=== PATIENT | male | born 1960 | race Caucasian/White ===

== ENCOUNTER 2017-09-03 11:38 | Emergency (ER) | payer BC, SELFPAY ==
[2017-09-03 13:30] VITALS: BP 127/77; PULSE 63; RESP 20; TEMP 37.2; O2SAT 97; BMI 33.7
[2017-09-03 13:39] LABS: UTC Influenza A Antigen Negative (Negative); UTC Influenza B Antigen Negative (Negative)
--- NOTE | 2017-09-03 14:32 | HMH.EDUTC ---
[facility] – [place] Disposition Clinical Impression: Viral upper respiratory illness Disposition: Home, Self-Care Condition on Discharge: Good Instructions: DI for Viral Upper Respiratory Infection -- Adult Additional Instructions: * No sign of bacterial infection. Likely viral. Virus can take 7-14 days to run their course. Could still potentially be the flu with a false negative rapid test. Keep the differences between the flu and other upper resp infections in mind over the next few days. We could always repeat a flu test if you worsen or tomorrow if you would like to return. * Monitor Temp. Tylenol every 4 hours as needed no more then 5 times a day or 4000mg in 24 hours and/or ibuprofen every 6 hours as needed no more then 3200mg in 24 hours (as long as your primary care doctor has told you that it is ok to take both) for fever/aches/pain. ER if fever no less than 101 despite tylenol and ibuprofen * Encourage fluids, water, gatorade, powerade, pedialyte if /toddler/child * warm salt water gargles * warm fluids * sore throat lozenges * sleep elevated * humidifier/vaporizer * Use your albuterol as needed if you hear yourself wheezing. We discussed steroids but you would rather wait and see how the next 48 hours go before taking steroids. Referrals: Dominik Aguayo MD [Primary Care Provider] - (IMMEDIATELY for new or worsening symptoms OR no noticeable improvement over the next 48-72 hours OR if you get better then are suddenly worse again. 911 for difficulty breathing or swallowing.) Time of Disposition: 15:14 Medical Decision Making Vital Signs: 09/03/17 13:30 Temperature 98.9 F Temperature Source Temporal Artery Scan Pulse Rate [Right Brachial] 63 Respiratory Rate 20 Blood Pressure [Right Arm] 127/77 Blood Pressure Mean [Right Arm] 93 Blood Pressure Source [Right Arm] Automatic Cuff Blood Pressure Position [Right Arm] Sitting 02 Sat by Pulse Oximetry 97 Oxygen Delivery Method Room Air - Lab Data Lab results reviewed: Yes: I reviewed the patient's lab results. Lab Results 09/03/17 13:24: Influenza Type A Ag Negative, Influenza Type B Ag Negative - Radiology Data #1 Image(s): Chest Image Reviewed: Yes I reviewed the patient's radiology image, Yes I have reviewed radiologist's interpretation, Yes I reviewed the patient's radiology image w/the ED provider Preliminary Findings: Normal/NAD Rvwd w/ Dr. Hall before final. No acute finding. Granuloma right lung - Jeffery Inquiry Pt receiving controlled substance: No [facility] [place] HPI - General Stated complaint: possible flu Time Seen by Provider: 09/03/17 14:32 Mode of Arrival: Family Vehicle Source of Information: Patient Limitations: No Limitations Description of Symptoms (Recalled from Triage Doc. by RN): FLU LIKE SYMPTOMS SINCE LAST NIGHT. HEENT Symptoms (Recalled from RN notes): Yes (FLU SYMPTOMS) Resp Symptoms (Recalled from RN notes): Yes (FLU SYMPTOMS) Skin Symptoms (Recalled from RN notes): No MS Symptoms (Recalled from RN notes): No Functional Status (Recalled from RN notes): NA - History of Present Illness Provider Complaint: c/o I think I have the flu . Bodyaches, chills, cough, feeling feverish. Started late yesterday, persisted into today. No fever now. Mucinex seems to help. Cough chronic. Hx of COPD. Hasn't felt the need to use albuterol more. Seemed worse days ago but had gotten better until this started last night. a little wheezing . No SOA. 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 - Related Data Home Medications Medication Instructions Recorded Confirmed Bisoprol/Hydrochlorothiazide 1 tab PO DAILY 09/03/17 09/03/17 [Bisoprolol-Hctz 10-6.25 mg Tab] Lisinopril [Lisinopril 10mg Tab] 10 mg PO DAILY 09/03/17 09/03/17 Omeprazole [Omeprazole 40mg 40 mg PO DAILY 09/03/17 09/03/17 Capsule] Allergies Allergy/AdvReac Type Severity Reaction Status Date / Time No Known Allergies Allergy
--- NOTE | 2017-09-03 14:38 | ED_ITS ---
[facility] [place] Clinical Impression: Viral upper respiratory illness Disposition: Home, Self-Care Condition on Discharge: Good Instructions: DI for Viral Upper Respiratory Infection -- Adult Additional Instructions: * No sign of bacterial infection. Likely viral. Virus can take 7-14 days to run their course. Could still potentially be the flu with a false negative rapid test. Keep the differences between the flu and other upper resp infections in mind over the next few days. We could always repeat a flu test if you worsen or tomorrow if you would like to return. * Monitor Temp. Tylenol every 4 hours as needed no more then 5 times a day or 4000mg in 24 hours and/or ibuprofen every 6 hours as needed no more then 3200mg in 24 hours (as long as your primary care doctor has told you that it is ok to take both) for fever/aches/pain. ER if fever no less than 101 despite tylenol and ibuprofen * Encourage fluids, water, gatorade, powerade, pedialyte if infant/toddler/ child * warm salt water gargles * warm fluids * sore throat lozenges * sleep elevated * humidifier/vaporizer * Use your albuterol as needed if you hear yourself wheezing. We discussed steroids but you would rather wait and see how the next 48 hours go before taking steroids. Referrals: Dominik Aguayo MD [Primary Care Provider] - (IMMEDIATELY for new or worsening symptoms OR no noticeable improvement over the next 48-72 hours OR if you get better then are suddenly worse again. 911 for difficulty breathing or swallowing.) Time of Disposition: 15:14 Medical Decision Making Vital Signs: 09/03/17 13:30 Temperature 98.9 F Temperature Source Temporal Artery Scan Pulse Rate [Right Brachial] 63 Respiratory Rate 20 Blood Pressure [Right Arm] 127/77 Blood Pressure Mean [Right Arm] 93 Blood Pressure Source [Right Arm] Automatic Cuff Blood Pressure Position [Right Arm] Sitting 02 Sat by Pulse Oximetry 97 Oxygen Delivery Method Room Air - Lab Data Lab results reviewed: Yes: I reviewed the patient's lab results. Lab Results 09/03/17 13:24: Influenza Type A Ag Negative, Influenza Type B Ag Negative - Radiology Data #1 Image(s): Chest Image Reviewed: Yes I reviewed the patient's radiology image, Yes I have reviewed radiologist's interpretation, Yes I reviewed the patient's radiology image w/the ED provider Preliminary Findings: Normal/NAD Rvwd w/ Dr. Hall before final. No acute finding. Granuloma right lung - Jeffery Inquiry Pt receiving controlled substance: No [facility] [place] - General Stated complaint: possible flu Time Seen by Provider: 09/03/17 14:32 Mode of Arrival: Family Vehicle Source of Information: Patient Limitations: No Limitations Description of Symptoms (Recalled from Triage Doc. by RN): FLU LIKE SYMPTOMS SINCE LAST NIGHT. HEENT Symptoms (Recalled from RN notes): Yes (FLU SYMPTOMS) Resp Symptoms (Recalled from RN notes): Yes (FLU SYMPTOMS) Skin Symptoms (Recalled from RN notes): No MS Symptoms (Recalled from RN notes): No Functional Status (Recalled from RN notes): NA - History of Present Illness Provider Complaint: c/o I think I have the flu . Bodyaches, chills, cough, feeling feverish. Started late yesterday, persisted into today. No fever now. Mucinex seems to help. Cough chronic. Hx of COPD. Hasn't felt the need to use albuterol more. Seemed worse days ago but had gotten better until this started last night. a little wheezing . No SOA. 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
--- NOTE | 2017-09-03 14:41 | XR_ITS ---
XR chest 2V HISTORY: ITS.REASON: COUGH ORDERING PHYSICIAN: Cesilia Hagan PATIENT AGE: 57 years COMPARISON: None available FINDINGS: The cardiomediastinal silhouette and pulmonary vascularity are within normal limits. The lungs are clear without infiltrates, suspicious nodules, or pleural effusions. Calcified granuloma right lower lobe No acute bony abnormalities. IMPRESSION: No acute finding
== END 2017-09-03 15:15 | disposition home or self-care (01) ==
PROVIDERS: Emergency Provider Nurse Practitioner Family; Family Provider Internal Medicine Adolescent Medicine; PCP Internal Medicine Adolescent Medicine
DX: J06.9 Acute upper respiratory infection, unspecified (principal); I10 Essential (primary) hypertension; F17.210 Nicotine dependence, cigarettes, uncomplicated; Z79.899 Other long term (current) drug therapy
CPT/HCPCS: 71046; 87804; 99202

== ENCOUNTER → 2018-01-01 08:34 | Outpatient (CLI) | payer BC, SELFPAY ==
--- NOTE | 2018-01-01 08:37 | MR_ITS ---
MR cervical spine wo con, MR 3-d myelogram/MRCP Ordering Physician: Dominik Aguayo MD Patient Age: 57 years: Male HISTORY: ITS.REASON: CERVICAL NEURALGIA Neck pain with right-sided neck and right shoulder pain and tingling radiates to right shoulder symptoms for years. TECHNIQUE: Sagittal STIR, T1, T2, ; axial T1 and gradient echo on 1.5T Siemens wide bore MRI. 3-D MR myelogram image set obtained & performed on MRI workstation. Additional sagittal thin section T2 weighted dataset obtained from this latter acquisition as well (---76 CPT) . COMPARISON :May 2012 MRI C-spine FINDINGS . Cranial cervical junction appears satisfactory. C2/3 disc and cord satisfactory. Only scant posterior disc prominence to the right at C2/3. Negligible C3/4. Most prominent findings are at this level to the right. Large broad-based hypertrophic spur/ large hard disc right paracentral... Again seen to yield marked effacement and flattening cervical cord to the right. Similar appearance was seen in 2012.. Findings appear fairly stable at this level only question some incremental progression. This large osteophyte does narrow the spinal canal and yields a fairly pronounced spinal stenosis at this level: as well as prominent right recess & foraminal encroachment. C4/5. Large spur left /mainly hard disc left paracentral. Effaces cervical cord on left & yields prominent encroachment upon the left recess & left foramen. Small associated soft disc protrusion extends beyond spur, but the prominent spurring primarily accounts for the leftward defect Overall Similar appearance to 2014. Effacement & Flattening cervical cord to the left is stable. Only question very very slightly pronounced.... Moderate pronounced Central canal stenosis C5-C6. Again the spur/hard disc at midline & to the left., This effaces &, flattens the cervical cord midline & to the left.. Appears to be slight additional effacement of the cervical cord at midline and to the left to on today's study versus prior 2012 MR today's study at this level... Fairly pronounced central canal Spinal stenosis On the sensitive STIR images on also note suggestion subtle increased signal at the cervical cord -to the right at C3/4 and to the left at C 4/5 C5/6.. Could reflect subtle myelopathy changes. C6/7. mild/moderate Broad-based soft disc protrusion mild effaces thecal sac & but does not abut the cervical cord.. Fairly stable mild protrusion overall. Only question very slightly more evident midline and to the left. Yields borderline canal stenosis C7/T1, T1/T2, T2/T3 disc intact.. The 3-D MR myelogram nicely demonstrates multilevel spinal stenosis most pronounced at C 3/4 & C4/5; with moderate spinal stenosis at C5/6. Indentation on thecal sac midline at the left at C5-C6 C5/6 and mild stenosis C6/7, -----IMPRESSION . 1. Multilevel cervical spondylosis & multilevel cervical spinal stenosis again evident. Findings similar to 2012,-but with suggestion of subtle progression features at C5-C6 . neurosurgical follow be warranted for their input particular if any progression of symptoms 2. Summary of main findings below: C3/4: Large spur and hard disc to right- yields prominent effacement cervical cord to the right.. Fairly Prominent Central canal stenosis most pronounced at this level. Prominent right recess & foraminal encroachment. Overall findings similar 2012 with only perhaps early kyphosis at this level now evident. C4/5 hard disc & generous spur left paracentral, effaces cervical cord to left. Trace soft disc component associated. Overall appearance Similar to 2012. Moderate pronounced spinal stenosis C5/6. Minimal progression of spurring & hard disc at midline & to left. Slight additional effacement of cerv
== END ==
PROVIDERS: Family Provider Internal Medicine Adolescent Medicine; PCP Internal Medicine Adolescent Medicine; Visit Provider Internal Medicine Adolescent Medicine
DX: M54.12 Radiculopathy, cervical region (principal)
CPT/HCPCS: 72141; 76376

== ENCOUNTER → 2018-02-25 13:37 | Outpatient (POV) | payer BC, SELFPAY | PROVIDERS: Family Provider Internal Medicine Adolescent Medicine; PCP Internal Medicine Adolescent Medicine; Visit Provider Neurological Surgery | DX: Z00.00 Encounter for general adult medical examination without abnormal findings (principal) ==

== ENCOUNTER 2018-12-10 08:30 | Outpatient (RCR) | payer BC, SELFPAY ==
--- NOTE | 2018-11-30 09:30 | HMH.PTOPEV ---
PT Outpatient Evaluation Rehab PT Outpatient Evaluation Start: 11/30/18 09:20 Freq: Status: Active Protocol: Document 11/30/18 09:20 OCTAVIO (Rec: 11/30/18 09:30 OCTAVIO [id number]) Electronically Signed By Manjeet Ceron, PT 11/30/18 09:20 Outpatient Therapy Subjective History Subjective History Pt reports insidious onset R Sh blade area/mid back pain beginning ~4 weeks ago. Pt reports pain progressed with some R sided neck pain and R UE radicular s/s in lateral elbow area. PMH: cervical fusion sx. 03/2018. Pt reports all cervical s/s were resolved following sx., until now. Chief Complaint Pain,Stiff,Paresthesia, Weakness Symptom Type Ache,Throb,Sharp,Dull,Numbness ,Tingling Symptoms Relieved By Rest/Positioning Symptoms Aggravated By Sitting,Standing,Physical Activity,Lifting Prior Functional Limitations Lifting,Housework,Standing, Sitting Current Functional Limitations Lifting,Housework,Standing, Sitting Symptom Description Constant but Variable Level of pain today (0-10) 4 Pain scale - at its best (0-10) 3 Pain scale - at its worst (0-10) 8 Cervical Eval Palpation Cervical Muscles R Cervical Paraspinal,R CT Junction,R Upper Trapezius,R Thoracic Paraspinals Cervical/Thoracic Palpation Findings Tenderness,Trigger Point, Muscle Guarding Posture Head/C-Spine Posture Sitting Position Flexed Head/C-Spine Posture Standing Position Flexed Flexibility Deficits Upper Trapezius Muscle Length (R) Moderate Tightness Scalene Group Muscle Length (R) Moderate Tightness Pectoralis Major Muscle Length (R) Mild Tightness Passive Joint Mobility Cervical PIVM Dec: R OA L OA R AA L AA R C2/3 L C2/3 R C3/4 L C3/4 R C4/5 L C4/5 R C5/6 L C5/6 R C6/7 L C6/7 R C7/T1
== END 2018-12-10 08:35 | disposition home or self-care (01) ==
LOC: PT 08:30
PROVIDERS: Visit Provider Internal Medicine Adolescent Medicine
DX: M54.12 Radiculopathy, cervical region (principal); M25.511 Pain in right shoulder
CPT/HCPCS: 97010; 97012; 97014; 97035; 97110; 97140; 97163; G0283

== ENCOUNTER → 2019-04-29 10:31 | Outpatient (CLI) | payer SELFPAY ==
--- NOTE | 2019-04-29 10:34 | CT_ITS ---
PROCEDURE: CT HEART W CALCIUM SCORE CLINICAL HISTORY: SCREENING COMPARISON: No exams were available for comparison TECHNIQUE: Axial images obtained with sagittal and coronal reformats. All CT scans at the facility use one or more dose reduction, viz: automated exposure control, ma/kV adjustment per patient size (including targeted exams where dose is matched to indication, i.e. head), or iterative reconstruction technique. FINDINGS: The coronary artery calcium score is 160 which correlates to a moderate plaque burden and high cardiovascular disease risk. Incidental note is made of some minimal aortic valve calcification. Mild atelectatic or fibrotic changes are present in the right lung base within the middle lobe. There is a calcified granuloma in the right lower lobe. IMPRESSION: Moderate plaque burden with high cardiovascular disease risk Dictated by: Timmy Pitt MD 04/30/2019 09:12 Electronically signed by Timmy Pitt MD in [place] 04/30/2019 09:12
== END ==
PROVIDERS: PCP Internal Medicine Adolescent Medicine; Visit Provider Internal Medicine Cardiovascular Disease
DX: Z13.6 Encounter for screening for cardiovascular disorders (principal)
CPT/HCPCS: 75571

== ENCOUNTER → 2019-05-18 07:23 | Outpatient (CLI) | payer BC, SELFPAY ==
--- NOTE | 2019-05-18 | CA_ITS ---
APPROVED REPORT Exam: Exercise Treadmill Technologist: Leslie Mata Ht: 5 ft 10 in Wt: 244 lbs BSA: 2.27 m2 HR: 65 bpm BP: 186/111 mmHg Indications: Elevated calcium score Medical History Medications: Lisinopril,,,,, BisOPROLOL,,,,, Stress Test Details Test: Exercise stress testing was performed using a Lenny protocol. HR Resting HR: 67 bpm Max Heart Rate (APMHR): 162 bpm Max HR Achieved: 151 bpm Target HR (85% APMHR): 137 bpm % of APMHR: 93 Recovery HR: 82 bpm BP Resting BP: 186.0/109.0 mmHg Max BP: 186.0/111.0 mmHg Recovery BP: 181.0/109.0 mmHg ECG Clinical Exercise duration: 07:11 min Highest Stage Achieved: Exercise capacity: 10.1 METs Stress ECG Conclusion Resting ECG: Normal sinus rhythm Patient exercised 7:11 on Lenny Protocol. Test stopped due to shortness of air, fatigue. Symptoms: No chest pain. Arrhythmias/Ectopy: None ST-T Changes: Approximately [address] depression inferiorly and 1.5 mm laterally. Conclusion: EKG's positive for ischemia. Rest and stress echo images reported separately. Electronically signed by : Isai Abbott, 05/19/2019 15:12:11
--- NOTE | 2019-05-18 07:32 | CA_ITS ---
APPROVED REPORT EXAM: Comprehensive 2D, Doppler, and color-flow Echocardiogram Metal Products Viewer: Vicki Loving RDCS Ht: 5 ft 10 in Wt: 244lbs BSA: 2.27 BP: 188/96 mmHg Rhythm: NSR Indications: Hypertension I10, ELEVATED CALCIUM SCORE, COPD, SMOKER Medical History Medical History: HTN, CAD Cardiac Risk Factors: HTN, Smoking Echo Procedure The patient underwent an Exercise Stress Test using the Lenny Protocol. Blood pressure, heart rate, and EKG were monitored. An Echocardiogram was performed by hvac technician residential in four stages in quad fashion. At peak stress, four selected images were obtained and placed side by side with resting images for comparison. Stress Test Details Test: Exercise stress testing was performed using a Lenny protocol. HR Resting HR: 65 bpm Max Heart Rate (APMHR): 162 bpm Max HR Achieved: 151 bpm Target HR (85% APMHR): 137 bpm % of APMHR: 93 HR response to stress: Normal HR response to stress BP Resting BP: 186/111 mmHg Max BP: 186/90 mmHg BP response to stress: Abnormal hypertensive response to stress. ECG Resting ECG: Sinus rhythm ST Change: [address] segment depression Clinical Reason for Termination: Dyspnea Stress Symptoms: Dyspnea Exercise capacity: 10.1 METs Overall Exercise Capacity for Age: Good Echo Findings The Pre-Stress Echocardiogram showed normal left ventricular contractility with an estimated Ejection Fraction of about 55%. The Post-Stress Echocardiogram showed normal left ventricular contractility with an estimated Ejection Fraction of about Over 65%. No wall motion abnormality with exercise Other Information Study Quality: Good Conclusion 1. The EKG portion of the exercise stress echo is positive for ischemia, patient has baseline hypertension, and hypertensive response with exercise. Test was stopped due to shortness of breath patient did not complain of chest pain. Patient has good exercise capacity achieved 10.1 mets of workload on treadmill. 2. No echocardiographic evidence of exercise-induced segmental wall motion abnormality to suggest underlying ischemic heart disease. Normal left ventricular systolic function.
[2019-05-18 08:02] LABS: Basophils # 0.1 K/mm3 (0-0.2); Basophils % 0.5 % (0.1-2.0); Eosinophils # 0.3 K/mm3 (0.0-0.4); Eosinophils % 2.2 % (0.1-12.0); Hematocrit 51.3 % (42.0-52.0); Hemoglobin 15.8 g/dL (14.1-18.0); Lymphocytes # 3.7 K/mm3 (0.7-4.5); Lymphocytes % 30.9 % (10-50); Mean Corpuscular HGB Conc 30.9 g/dL (31.8-35.4); Mean Corpuscular Hemoglobin 31.7 pg (27.0-31.2); Mean Corpuscular Volume 102.7 fl (80-94); Mean Platelet Volume 7.4 fl (7.4-10.4); Monocytes % 8.2 % (1.7-9.3); Neutrophils # 6.9 K/mm3 (1.8-7.8); Neutrophils % 58.2 % (37.0-80.0); Platelet Count 336 K/mm3 (142-424); Red Cell Distribution Width 13.6 % (11.5-17.5); White Blood Count 11.8 K/mm3 (4.8-10.8)
[2019-05-18 08:04] LABS: Alanine Aminotransferase 36 U/L (12-78); Albumin Level 3.4 gm/dL (3.4-5.0); Alkaline Phosphatase 74 U/L (46-116); Anion Gap 11.2 mEq/L (5-15); Aspartate Amino Transferase 14 U/L (15-37); Bilirubin,Direct 0.1 mg/dL (0.0-0.2); Bilirubin,Indirect 0.3 mg/dL (0.0-0.9); Bilirubin,Total 0.4 mg/dL (0.2-1.0); Blood Urea Nitrogen 14 mg/dL (7-18); Calcium 7.9 mg/dL (8.5-10.1); Carbon Dioxide 28 mmol/L (21.0-32.0); Chloride 105 mmol/L (98-107); Chol/HDL Ratio 2.2 (1-3.5); Cholesterol 127 mg/dL (140-200); Estimated Glomerular Filt Rate 87 ml/min (>60); GFR (African American) 105 ML/MIN (>60); Glucose 88 mg/dL (74-106); HDL Cholesterol 58 mg/dL (27-67); LDL Cholesterol 59 mg/dL (0-130); Potassium 4.2 mmoL/L (3.5-5.1); Sodium 140 mmol/L (136-145); Total Protein,Serum 6.8 gm/dL (6.4-8.2); Triglycerides 48 mg/dL (30-200); VLDL Cholesterol 10 mg/dL (0-40)
== END ==
PROVIDERS: Physician Assistant; PCP Internal Medicine Adolescent Medicine; Visit Provider Internal Medicine Cardiovascular Disease
DX: R93.1 Abnormal findings on diagnostic imaging of heart and coronary circulation (principal); I10 Essential (primary) hypertension; R06.09 Other forms of dyspnea; R07.9 Chest pain, unspecified; F17.200 Nicotine dependence, unspecified, uncomplicated
CPT/HCPCS: 36415; 80048; 80061; 80076; 85025; 93017; 93350

== ENCOUNTER → 2019-06-29 10:06 | Outpatient (CLI) | payer BC, SELFPAY | PROVIDERS: PCP Internal Medicine Adolescent Medicine; Visit Provider Physician Assistant | DX: G47.33 Obstructive sleep apnea (adult) (pediatric) (principal); G47.9 Sleep disorder, unspecified; R06.83 Snoring | CPT/HCPCS: G0399 ==

== ENCOUNTER → 2019-08-12 07:06 | Outpatient (CLI) | payer BC, SELFPAY ==
[2019-08-12 08:17] LABS: Anion Gap 10.3 mEq/L (5-15); Blood Urea Nitrogen 15 mg/dL (7-18); Calcium 8.7 mg/dL (8.5-10.1); Carbon Dioxide 31 mmol/L (21.0-32.0); Chloride 103 mmol/L (98-107); Creatinine,Serum 0.97 mg/dL (0.70-1.30); Estimated Glomerular Filt Rate 79 ml/min (>60); GFR (African American) 96 ML/MIN (>60); Glucose 108 mg/dL (74-106); Potassium 4.3 mmoL/L (3.5-5.1); Sodium 140 mmol/L (136-145)
== END ==
PROVIDERS: Visit Provider Internal Medicine Cardiovascular Disease
DX: R07.9 Chest pain, unspecified (principal); R06.00 Dyspnea, unspecified; I10 Essential (primary) hypertension; R91.1 Solitary pulmonary nodule; R93.1 Abnormal findings on diagnostic imaging of heart and coronary circulation; G47.33 Obstructive sleep apnea (adult) (pediatric); G47.9 Sleep disorder, unspecified; R06.83 Snoring; Z82.49 Family history of ischemic heart disease and other diseases of the circulatory system
CPT/HCPCS: 36415; 80048

== ENCOUNTER → 2019-10-19 12:19 | Outpatient (CLI) | payer BC, SELFPAY ==
--- NOTE | 2019-10-19 12:23 | XR_ITS ---
PROCEDURE: XR LUMBAR SPINE MIN 4V CLINICAL INDICATION: LBP Severe back pain running down left leg COMPARISON: CT ABDOMEN PELVIS W CON from 05/22/2019 FINDINGS: There is normal alignment. Multilevel degenerative disc disease is present from L1-S1. There is an old fracture or limbus vertebra at the anterior superior aspect of L3. Anterior osteophytes are present from L1-S1. There are mild facet arthritic changes at L5-S1. No acute fracture or dislocation. The SI joints have an unremarkable appearance. IMPRESSION: Degenerative changes, no acute finding Dictated by: Timmy Pitt MD 10/19/2019 13:17 Electronically signed by Timmy Pitt MD in [place] 10/19/2019 13:17
== END ==
PROVIDERS: PCP Internal Medicine Adolescent Medicine; Visit Provider Internal Medicine Adolescent Medicine
DX: M54.5 Low back pain (principal)
CPT/HCPCS: 72110

== ENCOUNTER 2019-10-25 08:30 | Outpatient (RCR) | payer BC, SELFPAY ==
--- NOTE | 2019-10-21 15:06 | HMH.PTOPEV ---
PT Outpatient Evaluation Rehab PT Outpatient Evaluation Start: 10/21/19 14:51 Freq: Status: Active Protocol: Document 10/21/19 14:51 PHORNE (Rec: 10/21/19 15:05 PHORNE [id number]) Electronically Signed By Jimbo Harley, PT 10/21/19 14:51 Outpatient Therapy Subjective History Subjective History Pt is 59 yowm who presents with ~ 3 wk hx of acute onset low back pain with R sciatica. He reports pain is constant and severe with burning into the lateral R calf. He reports limited positions of comfort, most often sitting in recliner with full R hip and knee flex. He had x-ray performed which shows DDD throughout L5-S1. He reports PMH of HTN. Chief Complaint Pain Symptom Type Sharp,Burning,Shooting Symptoms Relieved By Rest/Positioning,Ice Symptoms Aggravated By Prone,Supine,Sitting,Standing, Bending/Stooping,Physical Activity Prior Functional Limitations None Current Functional Limitations Reaching,Lifting,Housework, Dressing,Driving,Sleeping, Standing,Sitting,Recreation Activity,Walking Symptom Description Constant but Variable Level of pain today (0-10) 10 Pain scale - at its worst (0-10) 10 Lumbopelvic Eval Gait Observation General Gait Pattern Observation Antalgic Gait,Decrease Weight Bear (R) Palapation tenderness right buttock tenderness Yes Lumbar/Sacral Palpation Findings Tenderness Lumbar/Sacral Palpation Overall Comment R SI and piriformis Accessory Movement L-spine Vertebrae Accessory Movements Central P/A [place] that Elicit Symptoms L2 bilateral L3 bilateral L4 bilateral L5 bilateral S1 bilateral Range of Motion Lumbar Spine Active Flexion Range of 0-40 Motion (degrees) Lumbar Spine Active Extension Range of 0-5 Motion (degrees) Left Lumbar Spine Lateral Flexion Active 0-15 Range of Motion (degrees) Right Lumbar Spine Lateral Flexion 0-15 Active Range of Motion (degrees) Manual Muscle Test Bilateral Knee Extension Strength Grade 5 Normal Knee Flexion Strength Grade 5 Normal Hip Flexion Strength Grade 5 Normal Hip Abduction Strength Grade 5
== END 2019-10-25 08:35 | disposition home or self-care (01) ==
LOC: PT 08:30
DX: M54.41 Lumbago with sciatica, right side (principal)
CPT/HCPCS: 97033; 97035; 97110; 97140; 97163

== ENCOUNTER → 2019-10-25 09:18 | Outpatient (POV) | payer BC, SELFPAY ==
[2019-10-25 09:24] VITALS: BP 145/97; PULSE 72; RESP 18; O2SAT 99; BMI 35.3
--- NOTE | 2019-10-25 11:28 | HMH.PMCON ---
Assessment and Plan (1) Degenerative disc disease Current visit: Yes Status: Chronic Category: Medical (2) Radiculopathy Current visit: Yes Status: Chronic Category: Medical Code(s): M54.10 - Radiculopathy, site unspecified (3) Facet arthropathy Current visit: Yes Status: Chronic Category: Medical Code(s): M47.819 - Spondylosis without myelopathy or radiculopathy, site unspecified - Assessment and plan all Dx Assessment and Plan for all problems:: We will get the patient scheduled for an MRI to help determine pathology. I do have a concern that he may have a herniation. We will also start him on gabapentin 300 mg 1 p.o. 3 times daily. I will follow-up with him after his MRI reassess his symptoms at that time he has been instructed to call the office if he has any issues prior to his next appointment. Dr. Brannon has reviewed this note and agrees with this plan of care. This note was dictated using voice recognition software and may contain errors or omissions HPI - Data of Consult Requesting Physician: Emelyn Prather APRN Primary Care Provider: Dominik Aguayo MD - Consult Narrative Reason for consult: Back pain, right leg pain History of present illness: Mr. Crooks is a 59 year old male who presents today in clear discomfort. He rates his pain today a 6 out of 10. 2 weeks ago he had a increase in his low back pain with radiation down his right leg. Since then he has been doing physical therapy with no relief. He is on [place] however he states it does not help. He rates his pain today a 6 out of 10. Patient is continuing physical therapy. Patient does have an x-ray showing some facet changes degeneration and other issues. I do believe an MRI is very necessary in order to move forward with the plan of care. Patient is on Plavix. Patient has had surgery on his cervical spine previously. Patient states that it feels like his right leg is sitting over an open flame and burning. CC: Emelyn Prather APRN [facility] History I have reviewed the patient's past medical history: Yes Medical History: Reports:: Chronic Obstructive Pulmonary Disease (COPD), Gastroesophageal Reflux Disease(GERD), Hypertension, Lung Disease, Myocardial Infarction Denies:: Diabetes Mellitus Type 1, Diabetes Mellitus Type 2, Internal Pacemaker, Seizures *Have you ever received a pneumonia vaccine?: Yes *Have you received a flu vaccine this season?: Yes Other Surgeries: Yes: No Previous Surgery, Cardiac Catheterization, Other (Cervical Fusion). No: Pacemaker - *Social History Smoking Status: Unknown if ever smoked Tobacco Type: cigarettes # Packs/Day (cigarettes): 1 #Yrs smoked (if former smoker): 20 Alcohol Intake: never Alcohol Intake Frequency:: 3 or more drinks per day Substance Use Type: denies use *Occupational Status:: other Housing: house Household Members: spouse *Travel in the last 8 weeks: None Family Hx:: Unable to obtain Review of Systems - Review of Systems ROS General: no recent weight change, no fever, no sleep disturbances Respiratory: no cough, no shortness of air, no recurring pulmonary infections Cardiovascular/Peripheral Vascular: No chest pain, No palpitations, no edema, no shortness of breath. Gastrointestinal: no new onset incontinence, normal bowel movements reported Genitourinary: no new onset incontinence Musculoskeletal: Low back pain, leg pain Psychiatric: normal mood/ affect Neurological: [denies new onset weakness in extremities], [denies new onset balance issues] Meds Home Medications Medication Instructions Recorded Confirmed Type lisinopriL [Lisinopril 10mg Tab] 10 mg PO DAILY 09/03/17 05/26/19 History cetirizine 10 mg tablet 10 mg PO DAILY 05/06/19 05/26/19 History bisoprolol fumarate 10 mg tablet 10 mg PO DAILY #90 tab 05/26/19 05/26/19 Rx hydrochlorothiazide 12.5 mg tablet 12.5 mg PO DAILY #90 tab 05/26/19 05/26/19 Rx clopidogrel 75 mg tablet 75 mg PO DAILY #90 ta
== END ==
PROVIDERS: PCP Internal Medicine Adolescent Medicine; Visit Provider Clinical Nurse Specialist Family Health
DX: M47.20 Other spondylosis with radiculopathy, site unspecified (principal)
CPT/HCPCS: 99202

== ENCOUNTER → 2019-10-26 09:09 | Outpatient (CLI) | payer BC, SELFPAY ==
--- NOTE | 2019-10-26 09:15 | MR_ITS ---
PROCEDURE: MR LUMBAR SPINE WO CON CLINICAL INDICATION: BACK PAIN Low back pain for 3 weeks with right buttock and leg pain burning and numbness COMPARISON: [facility] MR cervical spine wo con from 01/01/2018 XR LUMBAR SPINE MIN 4V from 10/19/2019 TECHNIQUE: Standard multiplanar multiecho sequences are performed without contrast. 3-D MIP and myelographic images are also rendered and reviewed FINDINGS: There is straightening of the lumbar lordosis. The spinal cord ends at the L1-L2 level. There are degenerative changes at T11-T12 and T12-L1 with endplate irregularity. L1-L2: Mild degenerative disc disease with minimal bulging disc. L2-L3: Degenerate disc disease. Anterior osteophyte is present superiorly at L3. L3-L4: Mild degenerative disc disease with mild foraminal narrowing L4-5: Degenerate disc disease with bulging disc with facet and ligamentum hypertrophy. Mild right foraminal narrowing. L5-S1: Degenerate disc disease with bulging disc with a small broad-based central/right paracentral disc protrusion which does abut the anterior medial aspect of the right S1 nerve root with facet ligamentum hypertrophy with moderate to severe right foraminal narrowing and moderate left foraminal narrowing. IMPRESSION: 1. Mild multilevel degenerative disc disease. There is endplate irregularity from T11 to L3 with decrease in the disc space and mild disc desiccation consistent with vertebral endplate osteochondrosis. 2. L3-L4: Mild degenerative disc disease with mild foraminal narrowing 3. The L4-5: Degenerate disc disease with bulging disc with facet and ligamentum hypertrophy. Mild right foraminal narrowing. 4. L5-S1: Degenerate disc disease with bulging disc with a small broad-based central/right paracentral disc protrusion which does abut the anterior medial aspect of the right S1 nerve root with facet ligamentum hypertrophy with moderate to severe right foraminal narrowing and moderate left foraminal narrowing. 5. No extruded herniated disc or canal stenosis Dictated by: Timmy Pitt MD 10/27/2019 10:20 Electronically signed by Timmy Pitt MD in [place] 10/27/2019 10:20
== END ==
PROVIDERS: PCP Internal Medicine Adolescent Medicine; Visit Provider Anesthesiology
DX: M54.5 Low back pain (principal)
CPT/HCPCS: 72148; 76376

== ENCOUNTER → 2019-11-03 13:23 | Outpatient (CLI) | payer BC, SELFPAY ==
--- NOTE | 2019-11-03 13:35 | ECG_ITS ---
APPROVED REPORT Exam: Resting ECG HR:123 bpm ECG Measurements Heart Rate 123 AXES MA 134 P 67 QRSd 74 QRS 45 QT 294 T 72 QTc 420 <Conclusion> Sinus tachycardia Left atrial abnormality Borderline ECG Electronically signed by : Dominik Aguayo, 11/04/2019 21:19:47
[2019-11-03 14:17] LABS: Basophils % 0.2 % (0.1-2.0); Eosinophils # 0.1 K/mm3 (0.0-0.4); Eosinophils % 0.4 % (0.1-12.0); Hematocrit 48.5 % (42.0-52.0); Hemoglobin 16.3 g/dL (14.1-18.0); Lymphocytes # 1.9 K/mm3 (0.7-4.5); Lymphocytes % 12.1 % (10-50); Mean Corpuscular HGB Conc 33.6 g/dL (31.8-35.4); Mean Corpuscular Hemoglobin 32.5 pg (27.0-31.2); Mean Corpuscular Volume 96.9 fl (80-94); Monocytes % 6.5 % (1.7-9.3); Neutrophils # 12.5 K/mm3 (1.8-7.8); Neutrophils % 80.9 % (37.0-80.0); Platelet Count 330 K/mm3 (142-424); Red Cell Distribution Width 12.4 % (11.5-17.5); White Blood Count 15.4 K/mm3 (4.8-10.8)
[2019-11-03 14:23] LABS: MANUAL DIFFERENTIAL MANUAL DIFFERENTIAL (MANUAL DIFF)
[2019-11-03 15:24] LABS: Lymphocytes % 12 % (10-50); Monocytes % 5 % (2-9); Neutrophils % 83 % (42-76); Platelet Estimate Normal; RBC Morphology Normal; Total Cells Counted 100
[2019-11-03 15:26] LABS: Chloride 96 mmol/L (98-107); Potassium 4.2 mmoL/L (3.5-5.1); Sodium 136 mmol/L (136-145)
[2019-11-03 15:29] LABS: Anion Gap 17.2 mEq/L (5-15); Blood Urea Nitrogen 12 mg/dl (9-20); Calcium 9.7 mg/dl (8.4-10.2); Carbon Dioxide 27 mmol/L (22.0-30.0); Estimated Glomerular Filt Rate 87 ml/min (>60); GFR (African American) 105 ML/MIN (>60); Glucose 92 mg/dl (74-100)
== END ==
PROVIDERS: Visit Provider Internal Medicine Adolescent Medicine
DX: R00.0 Tachycardia, unspecified (principal)
CPT/HCPCS: 36415; 80048; 85007; 85025; 93005

== ENCOUNTER → 2020-05-17 08:16 | Outpatient (CLI) | payer BC, SELFPAY ==
[2020-05-17 08:44] LABS: Basophils % 0.3 % (0.1-2.0); Eosinophils # 0.4 K/mm3 (0.0-0.4); Eosinophils % 4.3 % (0.1-12.0); Hematocrit 45.8 % (42.0-52.0); Hemoglobin 15.2 g/dL (14.1-18.0); Lymphocytes # 2.3 K/mm3 (0.7-4.5); Mean Corpuscular HGB Conc 33.3 g/dL (31.8-35.4); Mean Corpuscular Hemoglobin 32.2 pg (27.0-31.2); Mean Corpuscular Volume 96.8 fl (80-94); Mean Platelet Volume 6.7 fl (7.4-10.4); Monocytes # 0.7 K/mm3 (0.1-1.0); Monocytes % 8.4 % (1.7-9.3); Neutrophils # 5.1 K/mm3 (1.8-7.8); Platelet Count 293 K/mm3 (142-424); Red Blood Count 4.73 M/mm3 (4.60-6.20); Red Cell Distribution Width 12.5 % (11.5-17.5); White Blood Count 8.4 K/mm3 (4.8-10.8)
[2020-05-17 10:02] LABS: Alanine Aminotransferase 73 U/L (12-78); Albumin Level 4.3 g/dl (3.5-5.0); Alkaline Phosphatase 98 U/L (38-126); Anion Gap 14.5 mEq/L (5-15); Aspartate Amino Transferase 60 U/L (17-59); Bilirubin,Direct 0.2 mg/dl (0.0-0.4); Bilirubin,Indirect 0.4 mg/dL (0.0-0.9); Bilirubin,Total 0.6 mg/dl (0.2-1.3); Bilirubin,Unconjugated 0.5 mg/dL (0.0-1.1); Blood Urea Nitrogen 14 mg/dl (9-20); Calcium 9.3 mg/dl (8.4-10.2); Carbon Dioxide 26 mmol/L (22.0-30.0); Chloride 102 mmol/L (98-107); Chol/HDL Ratio 2.4 (1-3.5); Cholesterol 120 mg/dl (140-200); Estimated Glomerular Filt Rate 99 ml/min (>60); GFR (African American) 120 ML/MIN (>60); Glucose 114 mg/dl (74-100); HDL Cholesterol 51 mg/dl (40-60); Potassium 4.5 mmoL/L (3.5-5.1); Sodium 138 mmol/L (136-145); Triglycerides 84 mg/dl (30-150); VLDL Cholesterol 17 mg/dL (0-40)
[2020-05-17 10:13] LABS: Direct LDL Cholesterol 60.49 mg/dL (100-129)
[2020-05-17 10:18] LABS: Free T4 (Free Thyroxine) 1.01 ng/dl (0.78-2.19)
[2020-05-17 10:32] LABS: Thyroid Stimulating Hormone 1.15 uIU/mL (0.465-4.68)
== END ==
PROVIDERS: Visit Provider Internal Medicine Cardiovascular Disease
DX: I25.10 Atherosclerotic heart disease of native coronary artery without angina pectoris (principal); E78.5 Hyperlipidemia, unspecified; I10 Essential (primary) hypertension
CPT/HCPCS: 36415; 80048; 80061; 80076; 84439; 84443; 85025

== ENCOUNTER → 2020-06-08 07:40 | Outpatient (CLI) | payer BC, SELFPAY ==
--- NOTE | 2020-06-08 07:44 | XR_ITS ---
PROCEDURE: XR FOOT WT BEARING LT 3V CLINICAL INDICATION: pain COMPARISON: No exams were available for comparison FINDINGS: No fracture or dislocation. No lytic or blastic change. There is normal mineralization. Mild osteoarthritic change 1st MTP joint. Other findings:Small calcaneal spur IMPRESSION: Mild osteoarthritis 1st MTP joint Dictated by: Timmy Pitt MD 06/08/2020 08:29 Timmy Pitt MD in [place] 06/08/2020 08:29
--- NOTE | 2020-06-08 07:44 | XR_ITS ---
PROCEDURE: XR FOOT WT BEARING RT 3V CLINICAL INDICATION: pain COMPARISON: No exams were available for comparison FINDINGS: Osteoarthritic change 1st MTP joint with subchondral cystic changes. Hypertrophic changes with spurring at the distal aspect of the 1st metatarsal. There is a well-circumscribed bony density at the tip of the medial malleolus and could be due to an old injury or ununited ossification center. Other findings:None. IMPRESSION: Moderate osteoarthritis at the 1st MTP joint Dictated by: Timmy Pitt MD 06/08/2020 08:29 Timmy Pitt MD in [place] 06/08/2020 08:29
== END ==
PROVIDERS: PCP Internal Medicine Adolescent Medicine; Visit Provider Podiatrist
DX: M72.2 Plantar fascial fibromatosis (principal)
CPT/HCPCS: 73630

== ENCOUNTER → 2020-12-27 09:32 | Outpatient (POV) | payer BC, SELFPAY ==
[2020-12-27 09:43] VITALS: BP 132/88; PULSE 69; RESP 18; O2SAT 98; BMI 36.2
--- NOTE | 2020-12-27 10:05 | P.CONS_ITS ---
[facility] Pain Management SOAP Note Subjective:: Patient is a pleasant 60-year-old white male who presents today for follow-up. Patient was started on gabapentin 300 mg 1 p.o. 3 times daily at his last visit he has been taking them twice a day and doing extremely well with them he rates his pain a 0 out of 10 he denies any side effects. [facility] #[id number] reviewed and appropriate. ROS General: no recent weight change, no fever, no sleep disturbances Respiratory: no cough, no shortness of air, no recurring pulmonary infections Cardiovascular/Peripheral Vascular: No chest pain, No palpitations, no edema, no shortness of breath. Gastrointestinal: no new onset incontinence, normal bowel movements reported Genitourinary: no new onset incontinence Musculoskeletal: Back pain, leg pain Psychiatric: normal mood/ affect Neurological: [denies new onset weakness in extremities], [denies new onset balance issues] Objective:: Physical Exam General: Alert and oriented x3, no acute distress, pleasant and cooperative, [on room air] Lungs: Resps E/U, Symmetrical chest expansion, Eyes: PERRL Musculoskeletal: Flexion and extension of lumbar spine somewhat guarded secondary to pain, deep tendon reflexes normal, strength in upper and lower extremities [5/5], normal gait noted Neurological: speech clear, 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 twice daily. Has been instructed to call the office if he has any issues prior to his next appointment. Dr. Brannon has reviewed this note and agrees with this plan of care. This note was dictated using voice recognition software and may contain errors or omissions [facility] History I have reviewed the patient's past medical history: Yes Medical History: Reports:: Chronic Obstructive Pulmonary Disease (COPD), Coronary Artery Disease, Gastroesophageal Reflux Disease(GERD), Hyperlipidemia, Hypertension, Lung Disease, Myocardial Infarction Denies:: Diabetes Mellitus Type 1, Diabetes Mellitus Type 2, Internal Pacemaker, Seizures *Have you ever received a pneumonia vaccine?: Yes *Have you received a flu vaccine this season?: Yes Other Medical History: Reports: Other Other Surgeries: Yes: No Previous Surgery, Cardiac Catheterization, Colonoscopy, Other. No: Pacemaker Amputation: No Fractures: No - *Social History Smoking Status: Former smoker Tobacco Type: cigarettes # Packs/Day (cigarettes): 1 #Yrs smoked (if former smoker): 20 Alcohol Intake: current Alcohol Intake Frequency:: 0-2 drinks per day Substance Use Type: denies use *Occupational Status:: employed Housing: house Household Members: spouse *Travel in the last 8 weeks: None Family Hx:: Heart Attack, Diabetes, Hypertension, Coronary Artery Disease
== END ==
PROVIDERS: Visit Provider Clinical Nurse Specialist Family Health
DX: M51.16 Intervertebral disc disorders with radiculopathy, lumbar region (principal)
CPT/HCPCS: 99212; G0463

== ENCOUNTER → 2021-07-18 08:11 | Outpatient (POV) | payer BC, SELFPAY ==
[2021-07-18 08:20] VITALS: BP 174/93; PULSE 72; RESP 18; O2SAT 97; BMI 35.9
--- NOTE | 2021-07-18 08:22 | HMH.PAINSOAP ---
[facility] Pain Management SOAP Note Subjective:: Patient is a pleasant 61-year-old male who comes in here today for follow-up and medication refill. Patient is currently being treated for degenerative disc disease of the lumbar spine with lumbar radiculopathy. He is currently being managed with gabapentin 300 mg 3 times a day. Patient says that he is usually been taking this twice a day and takes an extra dose on some days. Patient denies any side effects from this medication. He denies any changes to location and type of pain. He rates his pain today as 0 out of 10. His Audrey number is [phone] with a morphine equivalent of 0. Review of Systems General: No recent weight changes, no fever, no sleep disturbances Respiratory: No cough, no shortness of air, no recurring pulmonary infections Cardiovascular/peripheral vascular: No chest pain, no palpitations, no edema, no shortness of breath Gastrointestinal: No new onset incontinence, normal bowel movements reported Genitourinary: No new onset incontinence Musculoskeletal: Low back pain Psychiatric: [Normal mood/affect] Neurological: [Denies weakness in extremities], [denies balance issues] Objective:: Physical exam General: Alert and oriented x3, no acute distress, pleasant and cooperative Lungs: Respirations even and unlabored, symmetrical chest expansion Eyes: PERRL Musculoskeletal: Flexion and extension of lumbar [spine] somewhat guarded secondary to pain, normal gait noted Neurological: Speech clear, no gross sensory deficit Assessment:: Degenerative disc disease of the lumbar spine with lumbar radiculopathy Chronic back pain Plan:: We will continue the patient's gabapentin 300 mg 3 times a day. We will provide the patient with [3 months] of refills. We would like to see the patient back in [3 months]. Risks and benefits of the medication have been explained in detail to the patient. The patient does understand the risk of dependence on the medication when given over a prolonged period. Patient has been advised of risks of oversedation with the prescribed medication. Narcan has been offered to the paitent in the event of oversedation. Patient has been advised that a family member should also be educated regarding administration of Narcan. The patient has been advised to consult with his/her primary care provider and pharmacist regarding drug-drug interaction of medications currently prescribed. Patient has been prescribed a controlled substance after being counseled on the medication, medication safety, and possible side effects. AUDREY report has been obtained and reviewed prior to prescription and found to be appropriate. Opioid contract was reviewed and signed by the patient, and that they have agreed to all of the terms set forth by our compliance program. Patient has been instructed to contact the clinic with any concerns before the next appointment. Dr. Brannon has reviewed this note and agrees with this plan of care. This note was dictated using voice recognition software and make contain errors or omissions. [facility] History Medical History: Reports:: Chronic Obstructive Pulmonary Disease (COPD), Coronary Artery Disease, Gastroesophageal Reflux Disease(GERD), Hyperlipidemia, Hypertension, Lung Disease, Myocardial Infarction Denies:: Diabetes Mellitus Type 1, Diabetes Mellitus Type 2, Internal Pacemaker, Seizures *Have you ever received a pneumonia vaccine?: Yes *Have you received a flu vaccine this season?: Yes Other Medical History: Reports: Other Other Surgeries: Yes: No Previous Surgery, Cardiac Catheterization, Colonoscopy, Other. 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
== END ==
PROVIDERS: Visit Provider Clinical Nurse Specialist Family Health
DX: M51.16 Intervertebral disc disorders with radiculopathy, lumbar region (principal); G89.29 Other chronic pain
CPT/HCPCS: 99212; G0463

== ENCOUNTER → 2021-11-14 07:19 | Outpatient (CLI) | payer BC, SELFPAY ==
[2021-11-14 07:28] LABS: Microscopic, Urine URINE MICROSCOPIC (MICROSCOPIC)
[2021-11-14 08:37] LABS: Basophils # 0.1 K/mm3 (0-0.2); Basophils % 0.8 % (0.1-2.0); Eosinophils # 0.3 K/mm3 (0.0-0.4); Eosinophils % 3.7 % (0.1-12.0); Hematocrit 45.2 % (42.0-52.0); Hemoglobin 15.6 g/dL (14.1-18.0); Lymphocytes # 2.7 K/mm3 (0.7-4.5); Lymphocytes % 32.3 % (10-50); Mean Corpuscular HGB Conc 34.5 g/dL (31.8-35.4); Mean Corpuscular Hemoglobin 33.4 pg (27.0-31.2); Mean Corpuscular Volume 96.9 fl (80-94); Mean Platelet Volume 8.1 fl (7.4-10.4); Monocytes # 0.7 K/mm3 (0.1-1.0); Monocytes % 7.8 % (1.7-9.3); Neutrophils # 4.6 K/mm3 (1.8-7.8); Neutrophils % 55.3 % (37.0-80.0); Platelet Count 298 K/mm3 (142-424); Red Blood Count 4.66 M/mm3 (4.60-6.20); Red Cell Distribution Width 13.3 % (11.5-17.5); White Blood Count 8.4 K/mm3 (4.8-10.8)
[2021-11-14 09:08] LABS: Appearance,Urine CLEAR (Clear); Bilirubin,Urine Negative (Negative); Blood, Urine Negative (Negative); Color,Urine YELLOW (Yellow); Glucose,Urine (UA) Negative (Negative); Ketones,Urine Negative (Negative); Leukocyte Esterase,Urine Negative (Negative); Nitrate,Urine Negative (Negative); Protein,Urine Negative (Negative); Specific Gravity, Urine 1.015 (1.005-1.030); Urobilinogen,Urine 0.2 EU/dl (0.2)
[2021-11-14 09:24] LABS: Bacteria,Urine Trace /lpf; Squamous Epithelial Cell,Urine Occasional #/hpf (0-5)
[2021-11-14 09:29] LABS: Free T4 (Free Thyroxine) 0.92 ng/dl (0.78-2.19)
[2021-11-14 09:33] LABS: Alanine Aminotransferase 38 U/L (12-78); Albumin Level 4.1 g/dl (3.5-5.0); Alkaline Phosphatase 70 U/L (38-126); Anion Gap 11.5 mEq/L (5-15); Aspartate Amino Transferase 36 U/L (17-59); Bilirubin,Direct 0.1 mg/dl (0.0-0.4); Bilirubin,Indirect 0.6 mg/dL (0.0-0.9); Bilirubin,Total 0.7 mg/dl (0.2-1.3); Bilirubin,Unconjugated 0.5 mg/dL (0.0-1.1); Blood Urea Nitrogen 14 mg/dl (9-20); Carbon Dioxide 26 mmol/L (22.0-30.0); Chloride 105 mmol/L (98-107); Chol/HDL Ratio 2.5 (1-3.5); Cholesterol 125 mg/dl (140-200); Estimated Glomerular Filt Rate 99 ml/min (>60); GFR (African American) 119 ML/MIN (>60); Glucose 119 mg/dl (74-100); HDL Cholesterol 50 mg/dl (40-60); Potassium 4.5 mmoL/L (3.5-5.1); Sodium 138 mmol/L (136-145); Total Protein,Serum 6.5 g/dl (6.3-8.2); Triglycerides 74 mg/dl (30-150); VLDL Cholesterol 15 mg/dL (0-40)
[2021-11-14 09:44] LABS: Direct LDL Cholesterol 56.62 mg/dL (100-129)
[2021-11-14 10:04] LABS: Prostate Specific Ag Screen 0.6 ng/ml (0.0-4.0); Thyroid Stimulating Hormone 1.85 uIU/mL (0.465-4.68)
[2021-11-14 10:40] LABS: Vitamin B12 266 pg/mL (239-931)
[2021-11-14 10:44] LABS: Folate 8.28 ng/mL
[2021-11-22 19:09] LABS: 1,25 Dihydroxy Vitamin D 51 pg/mL (.); 1,25-Dihydroxy, Vitamin D-2 <10 pg/mL (.); 1,25-Dihydroxy, Vitamin D-3 51 pg/mL (.)
== END ==
PROVIDERS: Visit Provider Internal Medicine
DX: R06.00 Dyspnea, unspecified (principal); I25.10 Atherosclerotic heart disease of native coronary artery without angina pectoris; R00.2 Palpitations; E78.5 Hyperlipidemia, unspecified; E66.9 Obesity, unspecified; Z68.37 Body mass index [BMI] 37.0-37.9, adult
CPT/HCPCS: 36415; 80048; 80061; 80076; 81001; 82607; 82652; 82746; 84439; 84443; 85025; G0103

== ENCOUNTER → 2021-11-18 07:47 | Outpatient (CLI) | payer BC, SELFPAY ==
--- NOTE | 2021-11-18 07:48 | CA_ITS ---
APPROVED REPORT EXAM: Comprehensive 2D, Doppler, and color-flow Echocardiogram Change Advisor: Andria Domingo, DIONICIO, RVS Ht: 5 ft 10 in Wt: 253lbs BSA: 2.31 BP: 130/90 mmHg Indications: SOA, Palpitations, HTN, KEVIN, Abn CT calcium scoring. 2D Dimensions Aortic Root 2.75 cm LA Volume 66.70 mL Left Atrium 3.87 cm LA Volume Index 29.810263 mL/m2 (M/F) 16-34 LVOT 1.99 cm (M/F) 1.5-2.5 M-Mode Dimensions RVDd 1.39 cm (0.9-2.6) LA Diam 3.91 cm (1.9-4.0) LVDd 5.19 cm (3.5-5.7) Ao Diam 3.20 cm (2.0-3.7) LVDs 3.31 cm (3.5-5.7) IVSd 0.89 cm (0.6-1.1) PWd 0.80 cm (0.6-1.1) EF (Teich) 65.50% EPSs 0.90 cm FS 36.20% EDV (Teich) 128.90 mL TAPSE 2.49 (<1.7) ESV (Teich) 44.50 mL LV Diastology E Decel Time 235.00 (160-240 msec) E/A Ratio 1.26 MED E' 12.60 (< 7 cm/sec) MED A' 16.10 cm/s E'/MED E' Ratio 8.75 (>14) LAT E' 12.80 (<10 cm/sec) LAT A' 8.80 cm/s E/LAT E' Ratio 8.62 (>14) Pulm Vein s 38.00 cm/sec Pulm Vein d 28.00 cm/sec Ar-A Duration 123.00 msec Aortic Valve LVOT Max 114.00 (70-110 cm/s) LVOT VTI 24.92 cm AoV Peak Cecilio. 145.00 (50-130 cm/s) AO Peak GR. 8.40 mmHg AO Mean GR. 4.20 (<5 mmHg) AO VTI 31.07 (18-25 cm) PITO (VTI) 2.49 (2.5-4.5 cm2) Mitral Valve MV A Velocity 88.00 (40-130 cm/s) E/A Ratio 1.26 MV Decel. Time 235.00 (160-240 ms) MV Mean Gr. 2.20 (<2mmHg) MV PHT 57.00 ms Pulmonary Valve PV Peak Velocity 77.00 (50-150 cm/s) Tricuspid Valve TR P. Velocity 255.00 cm/s RAP Estimate 10.00 mmHg RVSP 36.10 mmHg Left Ventricle Left atrium is normal size, left ventricle is normal size, visually estimated ejection fraction 55% with no regional wall motion abnormality, diastolic parameters are within normal range. Right Ventricle Right atrium and right ventricle are normal size and contractility. Aortic Valve Aortic valve is minimally thickened and fibrosed there is no aortic stenosis or aortic insufficiency. Mitral Valve Mitral valve grossly normal, there is trace mitral regurgitation. Tricuspid Valve Tricuspid valve grossly normal, there is trace tricuspid regurgitation, tricuspid regurgitation jet velocity is inadequate for calculation of the right ventricular systolic pressure. Pulmonic Valve Pulmonic valve is poorly visualized. Great Vessels Aortic root is normal size. Inferior vena cava is poorly visualized. Pericardium No significant pericardial effusion noted. Conclusion 1. Normal left ventricular size, preserved left ventricular systolic function, visually estimated ejection fraction 55% with no regional wall motion abnormality, diastolic parameters are within normal range. 2. Trace mitral and tricuspid regurgitation. 3. No significant pericardial effusion noted. 4. Inferior vena cava is poorly visualized. Electronically signed by : Isai Abbott MD 11/18/2021 20:48:10
== END ==
PROVIDERS: PCP Internal Medicine Adolescent Medicine; Visit Provider Internal Medicine
DX: R06.00 Dyspnea, unspecified (principal); R00.2 Palpitations; I25.10 Atherosclerotic heart disease of native coronary artery without angina pectoris; E78.5 Hyperlipidemia, unspecified; E66.9 Obesity, unspecified; I51.89 Other ill-defined heart diseases; Z68.37 Body mass index [BMI] 37.0-37.9, adult
CPT/HCPCS: 93306

== ENCOUNTER → 2022-01-16 08:20 | Outpatient (POV) | payer BC, SELFPAY ==
[2022-01-16 08:41] VITALS: BP 136/74; PULSE 67; RESP 18; TEMP 36.4; O2SAT 96; BMI 33.5
--- NOTE | 2022-01-16 08:48 | HMH.PAINSOAP ---
[facility] Pain Management SOAP Note Subjective:: Patient is a pleasant 61-year-old male who is here for medication refill and follow-up. Patient is currently being treated for degenerative disease of lumbar spine with lumbar radiculopathy symptoms. Patient is being managed with gabapentin 300 mg 3 times a day. Patient denies any side effects from the medications. Patient denies any changes to the location and type of pain. Patient states that he takes this medications at least 3 times a day. He takes the third 1 for breakthrough pain. He is stable on this medication. Patient states that this is adequately helping manage their pain. Rates pain as 0 out of 10. [facility] number [id number] with an active morphine equivalent 0. Drug screens have been reviewed and appropriate. Review of Systems: General: No recent weight changes, no fever, no sleep disturbances Respiratory: No cough, no shortness of air, no recurring pulmonary infections Cardiovascular/peripheral vascular: No chest pain, no palpitations, no edema, no shortness of breath Gastrointestinal: No new onset incontinence, normal bowel movements reported Genitourinary: No new onset incontinence Musculoskeletal: Low back pain Psychiatric: [Normal mood/affect] Neurological: [Denies weakness in extremities], [denies balance issues] Objective:: Physical Exam: General: Alert and oriented x3, no acute distress, pleasant and cooperative Lungs: Respirations even and unlabored, symmetrical chest expansion Eyes: PERRL Musculoskeletal: Flexion and extension of lumbar [spine] somewhat guarded secondary to pain, [antalgic gait noted] Neurological: Speech clear, no gross sensory deficit Assessment:: Degenerative disc disease of lumbar spine with lumbar radiculopathy symptoms Plan:: We will continue the patient's gabapentin 300 mg 3 times a day. We will provide the patient with 6-month of refills. We would like to see the patient back in 6 months for follow-up and reevaluation of chronic pain syndrome. Patient has been advised of risks of oversedation with the prescribed medication. Narcan has been offered to the patient in the event of oversedation. Patient has been advised that a family member should also be educated regarding administration of Narcan. Patient has been instructed to contact the clinic with any concerns before the next appointment. Dr. Brannon has reviewed this note and agrees with this plan of care. This note was dictated using voice recognition software and make contain errors or omissions. [facility] History Medical History: Reports:: Chronic Obstructive Pulmonary Disease (COPD), Coronary Artery Disease, Gastroesophageal Reflux Disease(GERD), Hyperlipidemia, Hypertension, Lung Disease, Myocardial Infarction Denies:: Diabetes Mellitus Type 1, Diabetes Mellitus Type 2, Internal Pacemaker, Seizures *Have you ever received a pneumonia vaccine?: No *Have you received a flu vaccine this season?: No Other Medical History: Reports: Other Other Surgeries: Yes: No Previous Surgery, Cardiac Catheterization, Colonoscopy, Other. No: Pacemaker Amputation: No Fractures: No - *Social History Smoking Status: Former smoker Tobacco Type: cigarettes # Packs/Day (cigarettes): 1 #Yrs smoked (if former smoker): 20 Alcohol Intake: current Alcohol Intake Frequency:: 0-2 drinks per day Substance Use Type: denies use *Occupational Status:: employed Housing: house Household Members: spouse *Travel in the last 8 weeks: None Family Hx:: Heart Attack, Diabetes, Hypertension, Coronary Artery Disease
== END ==
PROVIDERS: Visit Provider Student in an Organized Health Care Education/Training Program
DX: M51.16 Intervertebral disc disorders with radiculopathy, lumbar region (principal)
CPT/HCPCS: 99212; G0463

== ENCOUNTER → 2022-01-22 06:54 | Outpatient (CLI) | payer BC, SELFPAY ==
--- NOTE | 2022-01-22 06:59 | XR_ITS ---
FINAL REPORT CLINICAL HISTORY: RT STRESS REACTION VS FRACTURE, DORSAL FOOT PAIN COMPARISON: 06/08/2020 FINDINGS: RIGHT FOOT Three views were obtained. There is no acute fracture or dislocation. There are moderate degenerative changes of the 1st metatarsophalangeal joint. There is a small plantar calcaneal spur. No soft tissue abnormality is identified. IMPRESSION: Degenerative and chronic appearing findings Reviewed, Interpreted and Dictated by Carroll Bowie III, MD Transcribed by Kimberley Tubbs Authenticated and [facility]
== END ==
PROVIDERS: PCP Internal Medicine Adolescent Medicine; Visit Provider Podiatrist
DX: M79.671 Pain in right foot (principal)
CPT/HCPCS: 73630

== ENCOUNTER → 2022-10-17 07:25 | Outpatient (CLI) | payer BC, SELFPAY ==
[2022-10-17 07:41] LABS: Basophils # 0.1 K/mm3 (0-0.2); Eosinophils # 0.4 K/mm3 (0.0-0.4); Hematocrit 46.9 % (42.0-52.0); Hemoglobin 15.7 g/dL (14.1-18.0); Lymphocytes # 2.1 K/mm3 (0.7-4.5); Lymphocytes % 27.5 % (10-50); Mean Corpuscular HGB Conc 33.4 g/dL (31.8-35.4); Mean Corpuscular Hemoglobin 32.1 pg (27.0-31.2); Mean Corpuscular Volume 96.1 fl (80-94); Mean Platelet Volume 7.3 fl (7.4-10.4); Monocytes # 0.6 K/mm3 (0.1-1.0); Monocytes % 7.7 % (1.7-9.3); Neutrophils # 4.5 K/mm3 (1.8-7.8); Neutrophils % 58.8 % (37.0-80.0); Platelet Count 281 K/mm3 (142-424); Red Blood Count 4.88 M/mm3 (4.60-6.20); Red Cell Distribution Width 13.2 % (11.5-17.5); White Blood Count 7.7 K/mm3 (4.8-10.8)
[2022-10-17 07:59] LABS: Chloride 103 mmol/L (98-107)
[2022-10-17 08:00] LABS: Potassium 4.7 mmoL/L (3.5-5.1); Sodium 139 mmol/L (136-145)
[2022-10-17 08:02] LABS: Alanine Aminotransferase 28 U/L (12-78); Amylase 53 U/L (30-110); Anion Gap 8.7 mEq/L (5-15); Aspartate Amino Transferase 34 U/L (17-59); Bilirubin,Unconjugated 0.3 mg/dL (0.0-1.1); Blood Urea Nitrogen 15 mg/dl (9-20); Calcium 8.8 mg/dl (8.4-10.2); Carbon Dioxide 32 mmol/L (22.0-30.0); Estimated Glomerular Filt Rate 86 ml/min (>60); GFR (African American) 104 ML/MIN (>60); Glucose 104 mg/dl (74-100)
[2022-10-17 08:03] LABS: Albumin Level 4.1 g/dl (3.5-5.0); Alkaline Phosphatase 76 U/L (38-126); Bilirubin,Direct 0.2 mg/dl (0.0-0.4); Bilirubin,Indirect 0.3 mg/dL (0.0-0.9); Bilirubin,Total 0.5 mg/dl (0.2-1.3); Chol/HDL Ratio 1.9 (1-3.5); Cholesterol 102 mg/dl (140-200); HDL Cholesterol 54 mg/dl (40-60); Lipase 68 U/L (23-300); Magnesium 2.1 mg/dl (1.6-2.3); Total Protein,Serum 6.7 g/dl (6.3-8.2); Triglycerides 64 mg/dl (30-150); VLDL Cholesterol 13 mg/dL (0-40)
[2022-10-17 08:14] LABS: Direct LDL Cholesterol 48.08 mg/dL (100-129)
[2022-10-17 08:21] LABS: Free Thyroxine Index 3.1 ug/dL (5.93-13.13); T4 (Thyroxine) 8.7 ug/dl (5.53-11.0); Triiodothryronine (T3) Uptake 36 % (23.5-40.5)
[2022-10-17 09:12] LABS: Thyroid Stimulating Hormone 1.69 uIU/mL (0.465-4.68)
[2022-10-29 03:37] LABS: 1,25 Dihydroxy Vitamin D 22 pg/mL (.); 1,25-Dihydroxy, Vitamin D-2 <10 pg/mL (.); 1,25-Dihydroxy, Vitamin D-3 22 pg/mL (.)
== END ==
PROVIDERS: PCP Internal Medicine Adolescent Medicine; Visit Provider Nurse Practitioner Family
DX: I25.10 Atherosclerotic heart disease of native coronary artery without angina pectoris (principal); I11.9 Hypertensive heart disease without heart failure; E78.2 Mixed hyperlipidemia; E11.9 Type 2 diabetes mellitus without complications; E66.9 Obesity, unspecified; Z68.34 Body mass index [BMI] 34.0-34.9, adult; Z79.899 Other long term (current) drug therapy
CPT/HCPCS: 36415; 80048; 80061; 80076; 82150; 82652; 83690; 83735; 84436; 84443; 84479; 85025

== ENCOUNTER → 2023-03-18 07:05 | Outpatient (CLI) | payer BC, SELFPAY ==
--- NOTE | 2023-03-18 07:10 | CT_ITS ---
FINAL REPORT CLINICAL HISTORY: H/O TOBACCO USE FORMER SMOKER QUIT 5 YEARS AGO, 1PPD X35 YEARS WHEN SMOKING COMPARISON: None FINDINGS: CT CHEST LOW DOSE SCREENING HISTORY: Screening exam for lung cancer. Former smoker, 35 pack year smoking history DOSE: CTDIvol: 2.9 mGy, DLP: 96.38 mGy*cm COMPARISON: None . TECHNIQUE: Axial CT without IV contrast administration using low dose protocol FINDINGS: No acute lung disease is present . No pulmonary lesions are seen suspicious for neoplasm. There is a 2 mm lateral left upper lobe nodule best seen on axial image #40. No other nodules are present. There are bilateral calcified granulomas present. No pleural or pericardial effusion is seen . Moderate calcification is noted in the left coronary artery.. IMPRESSION: Single 2 mm nodule identified in the left upper lobe as described. No other masses or nodules are identified. Moderate left coronary artery calcification. LUNG RADS CATEGORY 2 RECOMMENDATION: 12 month LDCT follow up Reviewed, Interpreted and Dictated by Chad Acosta MD Transcribed by Yaneth Ovalle Authenticated and [facility]
== END ==
PROVIDERS: PCP Internal Medicine Adolescent Medicine; Visit Provider Nurse Practitioner Family
DX: Z87.891 Personal history of nicotine dependence (principal); Z12.2 Encounter for screening for malignant neoplasm of respiratory organs
CPT/HCPCS: 71271

== ENCOUNTER 2024-03-22 06:11 | Outpatient (CLI) | payer BC, SELFPAY ==
--- NOTE | 2024-03-22 | CT_ITS ---
FINAL REPORT TECHNIQUE: Axial images were obtained from the lung apex to the mid abdomen by computed tomography. This study was performed with techniques to keep radiation doses as low as reasonably achievable (ALARA). Individualized dose reduction techniques using automated exposure control or adjustment of mA and/or kV according to the patient's size were employed. CLINICAL HISTORY: .former smoker quit 5 years ago. 2ppd x35 years when smoking COMPARISON: 03/18/2023 FINDINGS: CHEST CT LOW DOSE CTDI vol (mGy): 2.90 DLP (mGy-cm): 103.42 There is no axillary adenopathy. There is no hilar or mediastinal adenopathy. The heart is normal in size. There is moderate coronary artery calcification. There is no pericardial or pleural effusion. There is a stable 2 mm lateral left upper lobe nodule well seen on image 44. Several calcified granulomas are identified. Note is made of mild emphysema. Limited images of the upper abdomen are unremarkable. IMPRESSION: Stable left upper lobe nodule. Lung RADS category 2. Recommend 12 month follow-up low-dose chest CT. Reviewed, Interpreted and Dictated by Carroll Bowie III, MD Transcribed by Kimberley Tubbs Authenticated and [facility]
[2024-03-22 07:23] LABS: Albumin Level 4.1 g/dl (3.5-5.0); Chloride 106 mmol/L (98-107); Sodium 139 mmol/L (136-145)
[2024-03-22 07:24] LABS: Potassium 4.1 mmoL/L (3.5-5.1)
[2024-03-22 07:26] LABS: Alanine Aminotransferase 23 U/L (12-78); Alkaline Phosphatase 72 U/L (38-126); Anion Gap 5.1 mEq/L (5-15); Aspartate Amino Transferase 31 U/L (17-59); Bilirubin,Total 0.8 mg/dl (0.2-1.3); Blood Urea Nitrogen 12 mg/dl (9-20); Carbon Dioxide 32 mmol/L (22.0-30.0); Estimated Glomerular Filt Rate 86 ml/min (>60); GFR (African American) 103 ML/MIN (>60)
[2024-03-22 07:27] LABS: Albumin/Globulin Ratio 1.5 (1.1-1.8); Calcium 8.8 mg/dl (8.4-10.2); Chol/HDL Ratio 2.2 (1-3.5); Cholesterol 135 mg/dl (140-200); Globulin 2.7 g/dL (1.3-3.2); Glucose 120 mg/dl (74-100); HDL Cholesterol 61 mg/dl (40-60); Total Protein,Serum 6.8 g/dl (6.3-8.2); Triglycerides 71 mg/dl (30-150); VLDL Cholesterol 14 mg/dL (0-40)
[2024-03-22 07:38] LABS: Direct LDL Cholesterol 45.34 mg/dL (100-129)
[2024-03-22 07:44] LABS: Basophils # 0.1 K/mm3 (0-0.2); Basophils % 0.8 % (0.1-2.0); Eosinophils # 0.5 K/mm3 (0.0-0.4); Hematocrit 46.6 % (42.0-52.0); Hemoglobin 15.5 g/dL (14.1-18.0); Lymphocytes # 2.4 K/mm3 (0.7-4.5); Lymphocytes % 29.8 % (10-50); Mean Corpuscular HGB Conc 33.2 g/dL (31.8-35.4); Mean Corpuscular Hemoglobin 32.6 pg (27.0-31.2); Mean Corpuscular Volume 98.1 fl (80-94); Mean Platelet Volume 7.5 fl (7.4-10.4); Monocytes # 0.5 K/mm3 (0.1-1.0); Monocytes % 6.7 % (1.7-9.3); Neutrophils # 4.5 K/mm3 (1.8-7.8); Neutrophils % 56.7 % (37.0-80.0); Platelet Count 268 K/mm3 (142-424); Red Blood Count 4.75 M/mm3 (4.60-6.20); Red Cell Distribution Width 13.8 % (11.5-17.5); White Blood Count 7.9 K/mm3 (4.8-10.8)
[2024-03-22 08:20] LABS: Prostate Specific Ag Screen 0.6 ng/ml (0.0-4.0)
[2024-03-23 16:12] LABS: Hemoglobin A1C 5.8 % (4.0-6.0)
== END 2024-03-22 23:59 | disposition home or self-care (01) ==
LOC: RAD 06:12
PROVIDERS: PCP Nurse Practitioner Family; Visit Provider Nurse Practitioner Family
DX: Z87.891 Personal history of nicotine dependence (principal); Z12.5 Encounter for screening for malignant neoplasm of prostate
CPT/HCPCS: 36415; 71271; 80053; 80061; 83036; 85025; G0103

== ENCOUNTER 2024-05-13 07:59 | Emergency (ER) | payer BC, SELFPAY ==
[2024-05-13 08:17] VITALS: BP 136/83; PULSE 66; RESP 16; TEMP 36.8; O2SAT 98; BMI 33.3
--- NOTE | 2024-05-13 08:23 | EXP.UTC ---
Discharge Plan Disposition Patient Disposition: Home, Self-Care Condition: Good Prescriptions Prescriptions: New benzonatate 100 mg capsule 100 mg PO TID PRN (Reason: cough) Qty: 30 0RF methylprednisolone [Medrol (Tai)] 4 mg tablets,dose pack See Rx Instructions .Route .COMPLEX 6 Days Qty: 21 0RF Rx Instructions: taper pack; amoxicillin-pot clavulanate 875-125 mg Tablet 1 tab PO Q12H Qty: 20 0RF guaifenesin [Mucinex] 600 mg tablet extended release 12hr 1,200 mg PO BID PRN (Reason: cough) Qty: 20 0RF No Action diclofenac sodium 1 % gel 4 g TP QID PRN (Reason: pain ) 30 Days Qty: 100 2RF Rx Instructions: apply to single, ankle, foot; for foot includes sole/toes/top of foot omeprazole 40 mg capsule,delayed release(DR/EC) 40 mg PO DAILY methylprednisolone 4 mg tablets,dose pack 4 mg PO PER PKG DIR Qty: 21 0RF lisinopril 20 mg tablet 20 mg PO DAILY Qty: 90 3RF atorvastatin 40 mg tablet 40 mg PO DAILY Qty: 30 0RF clopidogrel 75 MG tablet 75 mg PO DAILY bisoprolol fumarate 10 MG tablet See Rx Instructions .Route .COMPLEX Rx Instructions: TAKE ONE TABLET BY MOUTH EVERY DAY hydrochlorothiazide 12.5 MG capsule See Rx Instructions .Route .COMPLEX Rx Instructions: TAKE ONE CAPSULE BY MOUTH EVERY DAY gabapentin 300 MG capsule 300 mg PO TID Qty: 90 5RF Referrals Follow up/Referrals: Nettie Hines APRN [Primary Care Provider] - See instructions Activity Restrictions/Add. Instructions Additional Instructions/Restrictions: Start antibiotic today. Be sure to complete entire prescription even if feeling better Monitor temp. Tylenol every 4 hours as needed and / or ibuprofen every 6 hours as needed ( As long as your primary care physician has told you that it ok to take both. For fever/aches/pains ER if no less than 101 despite Tylenol or Motrin Humidifier/vaporizer or hot steamy shower Mucinex during the day for your cough and cough suppressant only at night. Be sure to drink lots of water. *Tessalon Perles will not cause drowsiness but use at bedtime to help stop cough so that you may get some rest. *Start steroid today. Helps with inflammation therefore, cough and wheezing. Follow directions on the package. Reviewed side effects. Patient reports taking them before. Follow up IMMEDIATELY for new or worsening of symptoms OR no noticeable improvement over the next 48-72 hours. 911 immediately for any life threatening symptoms such as chest pain or difficulty breathing Clinical Impressions Clinical Impression: Sinusitis, Bronchitis Instructions Patient Instructions: Acute Bronchitis, DI for Sinusitis Print Language Print Language: Mozambican Discharge ED Provider: Norma Day [facility] [place] HPI General Stated complaint: chest congestion, cough , headache Mode of Arrival: Ambulatory Source of Information: Patient Limitations: No Limitations Time Seen by Provider: 05/13/24 08:20 Description of Symptoms (Recalled from Triage Doc. by RN): Patient reports cough, congestion, headache and body aches. HEENT Symptoms (Recalled from RN notes): Yes Resp Symptoms (Recalled from RN notes): No Skin Symptoms (Recalled from RN notes): No MS Symptoms (Recalled from RN notes): No Functional Status (Recalled from RN notes): wnl History of Present Illness Provider Complaint: Patient states he has been having sinus pain and pressure, cough and congestion for over a week States today he was still not feeling well so he came in to get checked Related Data Home Medications ?Medication ?Instructions ?Recorded ?Confirmed bisoprolol fumarate 10 mg tablet See Rx Instructions .Route 01/16/22 01/21/22 .COMPLEX BLOOD PRESSURE clopidogrel 75 mg tablet 75 mg PO DAILY Blood thinner 01/16/22 01/21/22 hydrochlorothiazide 12.5 mg capsule See Rx Instructions .Route 01/16/22 01/21/22 .COMPLEX Fluid omeprazole 40 mg capsule,delayed 40 mg PO DAILY 01/21/22 01/21/22 release Previous Rx's ?Medication ?Instructions ?Recorded diclofenac sodium 1 % topical gel 4 g topical QID PRN pain 30 days 06/11/20 #100 grams gabapentin 300 mg capsule 300 mg PO TID Pain #90 caps 01/16/22 methylprednisolone 4 mg tablets in 4 mg PO PER PKG DIR Pain, swelling 01/21/22 a dose pack #21 tabs lisinopril 20 mg tablet 20 mg PO DAILY BLOOD PRESSURE #90 01/30/22 tabs atorvastatin 40 mg tablet 40 mg PO DAILY Cholesterol #30 tabs 07/14/23 amoxicillin 875 mg-potassium 1 tab PO Q12H #20 tabs 05/13/24 clavulanate 125 mg tablet benzonatate 100 mg capsule 100 mg PO TID PRN cough #30 caps 05/13/24 guaifenesin 600 mg tablet, 1,200 mg (2 x 600 mg) PO BID PRN 05/13/24 extended release 12 hr (Mucinex) cough #20 tabs methylprednisolone 4 mg tablets in See Rx Instructions .Route 05/13/24 a dose pack (Medrol (Tai)) .COMPLEX 6 days #21 tabs Allergies Allergy/AdvReac Type Severity Reaction Status Date / Time No Known Allergies Allergy Verified 01/21/22 10:00 Worker's Comp Is this a Worker's Comp case?: No PFSH [facility] Disclaimer: The information contained in this section may have been updated after the patient was seen, as this information can be updated by other users. Medical History (Updated 05/13/24 @ 08:30 by Norma Day APRN) Family history of heart disease Nodule of right lung KEVIN (obstructive sleep apnea) Restless sleeper Snoring Dyspnea Chest pain HTN (hypertension) Elevated coronary artery calcium score Social History Smoking Status: Former smoker tobacco type: cigarettes packs per day: 1 alcohol intake: current alcohol intake frequency: 0-2 drinks per day substance use type: denies use current occupational status: employed Travel in the last 8 weeks: None household members: spouse housing: house caffeine: No ROS Obtained: Yes All systems reviewed & no additional complaints except as documented and Yes Systems reviewed as appropriate & no additional complaints except as documented Constitutional Constitutional: Reports system reviewed and no additional complaints, except as documented, Reports as per HPI, Reports body ache and Reports headache(s) ENT Ears, Nose, Mouth, and Throat: Reports system reviewed and no additional complaints, except as documented, Reports as per HPI, Reports headache(s), Reports sinus pain and Reports sinus pressure Cardiovascular Cardiovascular: Reports system reviewed and no additional complaints, except as documented and Reports as per HPI Respiratory Respiratory: Reports system reviewed and no additional complaints, except as documented, Reports as per HPI, Denies shortness of breath, Reports chest congestion and Reports cough Gastrointestinal Gastrointestingal: Reports system reviewed and no additional complaints, except as documented and as per HPI Neurologic Neurologic: Reports headache(s) Physical Exam General General appearance: alert and in no apparent distress ENT ENT exam: Present mucous membranes moist Expanded ENT Exam Nose exam: Present sinus tenderness Throat exam: Present other (pharyngeal erythema noted with PND) Chest Chest inspection: Present normal inspection and symmetric chest wall rise Respiratory Respiratory exam: Present normal lung sounds bilaterally; Absent respiratory distress or wheezes Cardiovascular Cardiovascular exam: Present regular rate, normal rhythm and normal heart sounds Neurological Exam Neurological exam: Present alert, oriented X3 and normal gait Medical Decision Making Medical Records Screening: Per USPSTF and CDC recommendations, given the prevalence of disease in our region, it is our hospital?s policy to screen for HIV and viral Hepatitis for all patients aged 18 and over and those with ongoing risk factors. Jeffery Inquiry Pt receiving controlled substance: No Jeffery was queried for this patient: No Vital Signs: 05/13/24 08:17 Temperature 98.2 F Temperature Source Oral Pulse Rate [Radial] 66 Respiratory Rate 16 Blood Pressure [Right Arm] 136/83 Blood Pressure Mean [Right Arm] 100 Blood Pressure Source [Right Arm] Automatic Cuff Blood Pressure Position [Right Arm] Sitting 02 Sat by Pulse Oximetry 98 Oxygen Delivery Method Room Air Medical Decision Narrative: Patient states that he has taken Prednisone in the past without complications or reactions
[2024-05-13] MEDS: METHYLPREDNISOLONE SOD SUCC 125MG VIAL 125 MG IM (08:43)
[2024-05-13 08:52] VITALS: BP 136/83; PULSE 66; RESP 16; TEMP 36.8; O2SAT 98
== END 2024-05-13 08:53 | disposition home or self-care (01) ==
PROVIDERS: Emergency Provider Nurse Practitioner; PCP Nurse Practitioner Family
DX: J01.90 Acute sinusitis, unspecified (principal); J40 Bronchitis, not specified as acute or chronic
CPT/HCPCS: 99213; G0381; J2919

== ENCOUNTER 2024-11-11 07:23 | Outpatient (CLI) | payer BC, SELFPAY ==
--- NOTE | 2024-11-11 07:24 | CT_ITS ---
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 A noncontrast coronary calcium scan was performed. A CT attenuation threshold of 130 Hounsfield units (HU) was used for the detection of calcium in contiguous voxels of 1 sq mm in area to be counted as individual lesions. Bolus tracking in the ascending aorta with a threshold of 180 HU was performed. Immediately afterwards, ECG synchronized cardiac CT was then performed from the cardiac base to apex using retrospective gating with ECG tube current modulation. A total of 85 mL of Isovue 370 mg/mL contrast medium was administered at 5 mL/sec followed by a saline flush using a biphasic injection protocol. A tube voltage of 120 KVp was used. The patient received the following medications prior to the cardiac CT. 0.8 mg of sublingual nitroglycerin The average heart rate at the time of acquisition was 58 bpm and regular. Image Reconstruction Transaxial images were reconstructed at 0.67 mm slide thickness. Data was reviewed interactively on an advanced workstation capable of 2 and 3-dimensional displays in all conventional reconstruction formats, including multiplanar reformations, maximum intensity projections, curved multiplanar reformations, and volume rendered reconstructions. When applicable, selected routine images describing the relevant coronary anatomy and pathology were saved and sent to PACS. Complications None Technical Quality Overall image quality was fair due to significant motion and blurring artifact. This may affect the diagnostic interpretation of the study findings. Coronary artery opacification was adequate. Total DLP (Dose-Length Product) is 1267.9 mGy-cm. The reported value represents the total of one or more individual components during the CT acquisition of this date and at this time, and as such, the same value may appear in more than one CT report depending on the interpreting/reporting physicians. COMPARISON None FINDINGS CT Coronary Calcium Scoring LMA (Left Main Artery) = 7 LAD (Left Anterior Descending) = 102 LCX (Left Coronary Circumflex) = 85 RCA (Right Coronary Artery) = 86 Total Calcium Score = 280 using the AJ-130 method. The observed calcium score of 280 is at 90th percentile for subjects of the same age, sex, and race/ethnicity. The interpretation of the calcium heart score is based on the following continuum*: 0 = no calcified plaque detected (risk of coronary artery disease is very low ??? less than 5%) 1-10 = calcium detected in extremely minimal levels (risk of coronary diseases is still low ??? less than 10%) 11-100 = mild levels of plaque detected with certainty (mild or minimal narrowing of heart arteries is likely) 101-400 = definite,at least moderate levels of plaque detected (relatively high risk of a heart attack within 3-5 years) >401-999 = extensive levels of plaque detected (high risk of heart attack, high levels of vascular disease are present, high likelihood of at least one significant coronary narrowing) *The calcium heart score quantifies the burden of coronary calcification/plaque in the coronary arteries. The calcium heart score is not able to evaluate the presence or burden of non-calcified (i.e. soft) plaque. There is mild calcification in the mitral annulus, as well as the transverse and descending thoracic aorta. Coronary CT Angiography The coronary arterial system is right dominant. Quantitative Stenosis Grading: Left Main (LM): The left main originates normally from the left sinus of Valsalva. The LM bifurcates into the left anterior descending artery and left circumflex artery. The LM is patent with no evidence of atherosclerosis. Left Anterior Descending (LAD) and Diagonal Branches: The LAD gives off 2 diagonal branch(es). There is mixed calcified/noncalcified plaque in proximal and mid LAD segments with up to 50 to 70% luminal stenosis in the mid LAD. There is no evidence of LAD-myocardial bridge. Left Circumflex (LCX) and Obtuse Marginals (OM): The LCX gives off 2 Obtuse Marginal (OM) branch(es). There is calcified plaque in the proximal LCx segment with < 25% luminal stenosis. Right Coronary Artery (RCA): The RCA originates normally from the right sinus of Valsalva. The RCA gives off a posterior descending artery (PDA) and posterolateral (PL) branches. There is mixed calcified/noncalcified plaque in the proximal and mid RCA segments with up to 70-90% luminal stenosis in the mid RCA. Non-Coronary Cardiac Findings: Analysis of the left ventricular (LV) structure and function was performed after 3-D reconstruction of the LV from axial images, with user-corrected automatic contouring for assessment of LV volumes and user-defined reconstruction from oblique planes for measurement of 3-D cardiac structure and function. -The left ventricle systolic function is normal. -There is no left atrial appendage filling defect. Two right pulmonary veins and two left pulmonary veins drain normally into the left atrium. -No pericardial thickening or calcification. -Central and branch pulmonary arteries in the [id number] are unremarkable. -Thoracic aorta within the visualized thoracic aortic-branches in the [id number] is unremarkable. Extracardiac Structures No significant extra-cardiac findings. Note, however, that this study is focused on the cardiac findings. IMPRESSION -Fair image quality due to significant motion and blurring artifact. This may affect the diagnostic interpretation of the study findings. -Presence of coronary calcification with an Agatston score = 280 using the AJ-130 method. -The observed calcium score of 280 is at 90th percentile for subjects of the same age, sex, and race/ethnicity. -Multivessel atherosclerotic coronary disease, with possible evidence of significant flow-limiting atherosclerosis of the mid RCA (70-90% luminal stenosis) and the mid LAD segments (50-70% luminal stenosis). -CAD-RADS 4A. Management recommendations per ACC/AHA guidelines*, as clinically appropriate. -Mild calcification in the mitral annulus, as well as the transverse and descending thoracic aorta. *Recommendations: CAD RADS 0: Reassurance. Consider non-atherosclerotic causes of chest pain. CAD RADS 1: Consider non-atherosclerotic causes of chest pain. Consider preventive therapy and risk factor modification. CAD RADS 2: Consider non-atherosclerotic causes of chest pain. Consider preventive therapy and risk factor modification, particularly for patients with nonobstructive plaque in multiple segments. CAD RADS 3: Consider further functional testing. Consider symptom-guided anti-ischemic and preventive pharmacotherapy as well as risk factor modification per published guideline statements. CAD RADS 4A: Consider further functional testing or invasive coronary angiography with revascularization per published guideline statements. Consider symptom-guided anti-ischemic and preventive pharmacotherapy as well as risk factor modification per published guideline statements. CAD RADS 4B: Invasive coronary angiography recommended with revascularization per published guideline statements. Consider symptom-guided anti-ischemic and preventive pharmacotherapy as well as risk factor modification per published guideline statements. CAD RADS 5: Consider invasive angiography and/or viability assessment with revascularization per published guideline statements. Consider symptom-guided anti-ischemic and preventive pharmacotherapy as well as risk factor modification per published guideline statements. CRITICAL RESULT None COMMUNICATION Per this written report The coronary and cardiac findings of this CCTA were reviewed, reported, and signed by Ulysses Phan MD (Pump Mechanic) Conclusion Electronically signed by : Avelina Phan MD 11/14/2024 13:00:05
[2024-11-11 07:44] VITALS: BP 131/78; PULSE 55; RESP 17; TEMP 36.6; O2SAT 98; BMI 34.4
[2024-11-11 08:15] LABS: Anion Gap 13.2 mEq/L (5-15); Blood Urea Nitrogen 14 mg/dl (9-20); Calcium 9.2 mg/dl (8.4-10.2); Carbon Dioxide 28 mmol/L (22.0-30.0); Chloride 101 mmol/L (98-107); Creatinine Clearance Estimated 116 mL/min (50-200); Estimated Glomerular Filt Rate 98 ml/min (>60); GFR (African American) 118 ML/MIN (>60); Glucose 113 mg/dl (74-100); Potassium 4.2 mmoL/L (3.5-5.1); Sodium 138 mmol/L (136-145)
[2024-11-11] MEDS: NITROGLYCERIN 0.4MG SL TABLET SL (08:35)
[2024-11-11 08:36] VITALS: BP 145/97; PULSE 59; RESP 16; O2SAT 100
[2024-11-11] MEDS: SODIUM CHLORIDE 0.9% 10ML SYR (RAD ONLY) 10 ML IV (08:48)
[2024-11-11] MEDS: IOPAMIDOL-370 (76%);100ML BOTTLE 85 ML IV (08:48)
[2024-11-11] MEDS: 0.9 % SODIUM CHLORIDE 50 ML VIAL IV (08:48)
== END 2024-11-11 08:50 | disposition home or self-care (01) ==
PROVIDERS: PCP Nurse Practitioner Family; Visit Provider Physician Assistant
DX: I25.10 Atherosclerotic heart disease of native coronary artery without angina pectoris (principal); I10 Essential (primary) hypertension; R93.1 Abnormal findings on diagnostic imaging of heart and coronary circulation; E78.2 Mixed hyperlipidemia
CPT/HCPCS: 75574; 80048; Q9967

== ENCOUNTER 2024-11-29 07:42 | Day surgery (SDC) | payer BC, SELFPAY ==
[2024-11-29] VITALS (12 sets, daily range): BP systolic 107–169; BP diastolic 58–109; PULSE 53–89; RESP 18–20; O2SAT 91–99; BMI 35.2
--- NOTE | 2024-11-29 07:08 | IR_ITS ---
APPROVED REPORT Patient Location: Outpatient Tractor Sweeper Operator: Igor Whittaker, RT (R) PROCEDURES Left heart catheterization Left ventriculogram Selective coronary angiogram Drug-eluting stent deployment to the mid and distal dominant right coronary INDICATION Coronary artery disease, Abnormal CCTA Informed consent was obtained prior to the procedure. COMPLICATIONS NONE Estimated Blood Loss: LESS THAN 10 ML TECHNIQUE One percent lidocaine used to anesthetize the right anterior aspect of the wrist. The right radial artery was accessed via the Seldinger technique. A 6 [place]bourgish sheath was placed in the right radial artery. 2.5 mg of Verapamil, 800 mcg of nitroglycerin, 1mg Lidocaine and 5000 U Heparin were given through the arterial sheath. The 6 [place]bourgish JL 3 guide catheter was also used to perform left heart catheterization, left ventriculogram and selective coronary angiogram. At the end the diagnostic angiogram therapeutic heparin was administered given a therapeutic ACT and the guide catheter was placed in the right coronary followed by Choice PT extra-support wire placed distally. A 3.5 x 34 mm [place] frontier stent was deployed at 14 rose reducing the stenosis. A 3.5 x 15 mm balloon was then deployed at 18 rose in the proximal and midportion of post dilate. PAUL-3 flow was present before and after the procedure. At the end the procedure the apparatus was removed the sheath was removed and hemostasis was achieved using TR banding patient was transferred to the postop putting in stable condition ANGIOGRAPHIC RESULTS The left main artery Normal The left anterior descending artery Is proximally normal and has mid vessel 20% smooth stenosis. A large first diagonal artery has an ostial 30 to 40% stenosis The circumflex artery Nondominant mild 10% luminal regularities The right coronary artery Large dominant with a mid vessel distal concentric 20% stenosis The MONTANO ventriculogram reveals Normal 65% The left ventricular end-diastolic pressure 15 mmHg IMPRESSION Mild LAD disease and mild to moderate ostial diagonal artery disease as described above Severe disease in the mid to distal dominant right coronary artery Successful stenting the mid to distal dominant right coronary severe disease reduced to 0% with 1 drug-eluting stent Normal ejection fraction Normal LVEDP PLAN 1. Effient and aspirin 2. LDL less than 55 to be achieved with high intensity statin 3. Avoidance of tobacco products 4. Risk factor modification 5. Cardiac rehabilitation Electronically signed by : Luis Frey MD 11/29/2024 10:27:19
[2024-11-29 08:21] LABS: Basophils % 0.4 % (0.1-2.0); Eosinophils # 0.3 Kmm3 (0.0-0.4); Eosinophils % 3.7 % (0.1-12.0); Hematocrit 45.3 % (42.0-52.0); Hemoglobin 15.8 g/dL (14.1-18.0); Lymphocytes # 2.5 K/mm3 (0.7-4.5); Lymphocytes % 27.9 % (10-50); Mean Corpuscular HGB Conc 34.9 g/dL (31.8-35.4); Mean Corpuscular Volume 91.9 fl (80-94); Mean Platelet Volume 8.7 fl (7.4-10.4); Monocytes # 0.9 K/mm3 (0.1-1.0); Monocytes % 9.5 % (1.7-9.3); Neutrophils # 5.3 K/mm3 (1.8-7.8); Neutrophils % 58.3 % (37.0-80.0); Nucleated Red Blood Cells # 0 10^3/uL; Nucleated Red Blood Cells % 0 %; Platelet Count 238 K/mm3 (142-424); Red Blood Count 4.93 M/mm3 (4.60-6.20); Red Cell Distribution Width 12.5 % (11.5-17.5); Red Cell Distribution Width-SD 42.4 fL; White Blood Count 9.1 K/mm3 (4.8-10.8)
[2024-11-29 08:24] LABS: Chloride 106 mmol/L (98-107); Sodium 140 mmol/L (136-145)
[2024-11-29 08:27] LABS: Blood Urea Nitrogen 12 mg/dl (9-20); Calcium 9.2 mg/dl (8.4-10.2); Carbon Dioxide 26 mmol/L (22.0-30.0); Creatinine Clearance Estimated 119 mL/min (50-200); Estimated Glomerular Filt Rate 98 ml/min (>60); GFR (African American) 118 ML/MIN (>60); Glucose 117 mg/dl (74-100)
[2024-11-29] MEDS: HEPARIN 1,000 UNITS/500ML NS (CATH LAB) 3000 UNIT IV (09:13)
[2024-11-29] MEDS: LIDOCAINE 1% 10ML MDV 10 ML IJ (09:13)
[2024-11-29] MEDS: 0.9 % SODIUM CHLORIDE 500 ML 25 ML IV (09:14)
[2024-11-29] MEDS: VERAPAMIL 2.5MG/ML 2ML VIAL 2.5 MG IV (09:14)
[2024-11-29] MEDS: NITROGLYCERIN 800MCG/8ML SYR (CATH LAB) 800 MCG IA (09:14)
[2024-11-29] MEDS: diphenhydrAMINE 50MG/ML VIAL 50 MG IV (09:14)
[2024-11-29] MEDS: HEPARIN 1,000 UNITS/ML 10ML VIAL (CATH LAB) 5000 UNIT IV (09:45)
[2024-11-29] MEDS: FENTANYL 100MCG/2ML VIAL 50 MCG IV (09:46)
[2024-11-29] MEDS: MIDAZOLAM HCL 1MG/ML 5ML VIAL 1 MG IV (09:46)
[2024-11-29] MEDS: PRASUGREL 10MG TAB 60 MG PO (09:53)
[2024-11-29] MEDS: IOPAMIDOL-370 (76%);100ML BOTTLE 60 ML IV (13:18)
[2024-11-29 14:16] LABS: CATHL Activated Clotting Time 360 SEC (74-125)
== END 2024-11-29 13:06 | disposition home or self-care (01) ==
PROVIDERS: PCP Nurse Practitioner Family; Visit Provider Internal Medicine
DX: I25.10 Atherosclerotic heart disease of native coronary artery without angina pectoris (principal); I10 Essential (primary) hypertension; I77.1 Stricture of artery; E78.5 Hyperlipidemia, unspecified; R93.1 Abnormal findings on diagnostic imaging of heart and coronary circulation; Z87.891 Personal history of nicotine dependence; Z79.899 Other long term (current) drug therapy; Z82.49 Family history of ischemic heart disease and other diseases of the circulatory system; E66.9 Obesity, unspecified; Z68.35 Body mass index [BMI] 35.0-35.9, adult
CPT/HCPCS: 80048; 85025; 85347; 92928; 93458; 99152; C1725; C1769; C1874; C9600; J1200; J1644; J3010; Q9967

== ENCOUNTER 2024-12-02 07:26 | Outpatient (CLI) | payer BC, SELFPAY ==
[2024-12-02 07:58] LABS: Basophils % 0.2 % (0.1-2.0); Eosinophils # 0.4 Kmm3 (0.0-0.4); Eosinophils % 4.1 % (0.1-12.0); Hematocrit 47.1 % (42.0-52.0); Lymphocytes # 2.4 K/mm3 (0.7-4.5); Lymphocytes % 26.3 % (10-50); Mean Corpuscular Hemoglobin 32.2 pg (27.0-31.2); Mean Corpuscular Volume 94.8 fl (80-94); Mean Platelet Volume 9.3 fl (7.4-10.4); Monocytes # 0.8 K/mm3 (0.1-1.0); Monocytes % 9.1 % (1.7-9.3); Neutrophils # 5.4 K/mm3 (1.8-7.8); Nucleated Red Blood Cells # 0 10^3/uL; Nucleated Red Blood Cells % 0 %; Platelet Count 259 K/mm3 (142-424); Red Blood Count 4.97 M/mm3 (4.60-6.20); Red Cell Distribution Width 12.6 % (11.5-17.5); Red Cell Distribution Width-SD 43.5 fL
[2024-12-02 08:07] LABS: Chloride 105 mmol/L (98-107)
[2024-12-02 08:08] LABS: Potassium 4.7 mmoL/L (3.5-5.1); Sodium 141 mmol/L (136-145)
[2024-12-02 08:10] LABS: Cholesterol 123 mg/dl (140-200); HDL Cholesterol 61 mg/dl (40-60); Triglycerides 65 mg/dl (30-150); VLDL Cholesterol 13 mg/dL (0-40)
[2024-12-02 08:11] LABS: Anion Gap 10.7 mEq/L (5-15); Blood Urea Nitrogen 12 mg/dl (9-20); Calcium 9.3 mg/dl (8.4-10.2); Carbon Dioxide 30 mmol/L (22.0-30.0); Estimated Glomerular Filt Rate 85 ml/min (>60); GFR (African American) 103 ML/MIN (>60); Glucose 109 mg/dl (74-100)
[2024-12-02 08:21] LABS: Direct LDL Cholesterol 47.27 mg/dL (100-129)
[2024-12-02 08:38] LABS: Hemoglobin A1C 5.4 % (4.0-6.0)
== END 2024-12-02 23:59 | disposition home or self-care (01) ==
LOC: LAB 07:27
PROVIDERS: PCP Nurse Practitioner Family; Visit Provider Internal Medicine
DX: Z95.5 Presence of coronary angioplasty implant and graft (principal)
CPT/HCPCS: 36415; 80048; 80061; 83036; 85025

== ENCOUNTER 2025-05-03 10:16 | Outpatient (CLI) | payer BC, SELFPAY ==
--- NOTE | 2025-05-03 10:17 | XR_ITS ---
FINAL REPORT CLINICAL HISTORY: left knee pain FINDINGS: 4 views of the left knee obtained. There is no prior exam for comparison. There is no acute fracture or dislocation. There is degenerative joint disease. No joint effusion. There is no soft tissue abnormality. IMPRESSION: Degenerative change without acute osseous abnormality of the left knee. Reviewed, Interpreted and Dictated by Lyla Dukes MD Transcribed by Leah Go Authenticated and [facility]
== END 2025-05-03 23:59 | disposition home or self-care (01) ==
LOC: RAD 10:17
PROVIDERS: PCP Internal Medicine Adolescent Medicine; Visit Provider Physician Assistant
DX: M17.12 Unilateral primary osteoarthritis, left knee (principal)
CPT/HCPCS: 73564

== ENCOUNTER 2025-07-27 06:45 | Outpatient (CLI) | payer BC, SELFPAY ==
--- NOTE | 2025-07-27 06:49 | CT_ITS ---
FINAL REPORT TECHNIQUE: Thin section axial images were obtained through the lungs using a low-dose technique per lung cancer screening protocol. Reconstruction images were obtained using the axial data. Exam was performed using dose reduction technique. CLINICAL HISTORY: HX NICOTINE DEPENDENCE FORMER SMOKER QUIT 7 YEARS AGO, 2PPD X25+ YEARS COMPARISON: 03/21/2024 FINDINGS: CTDLvol: 2.90 DLP: 9.25 Former smoker who quit 7 years ago, 50 pack year history Lungs: No acute pulmonary abnormality. There are several tiny subpleural left upper lobe nodules, stable in appearance compared to the prior exam. There is evidence of prior granulomatous disease. No areas of consolidation are identified. Lymph nodes: No thoracic lymphadenopathy. Mediastinum: Heart size is normal. Prominent coronary artery calcifications are present. Pleura/pericardium: No pleural or pericardial effusion. Other: No acute abnormality in the upper abdomen. IMPRESSION: Several tiny stable subpleural left upper lobe nodules. Lung RADS: 2S, the S designation for prominent coronary artery calcifications. Recommendation: 12-month follow-up LDCT. Reviewed, Interpreted and Dictated by Lyla Dukes MD Transcribed by Yaneth Ovalle Authenticated and [facility]
== END 2025-07-27 23:59 | disposition home or self-care (01) ==
LOC: RAD 06:47
PROVIDERS: PCP Nurse Practitioner Family; Visit Provider Nurse Practitioner Family
DX: Z12.2 Encounter for screening for malignant neoplasm of respiratory organs (principal); Z87.891 Personal history of nicotine dependence; R91.8 Other nonspecific abnormal finding of lung field; I25.10 Atherosclerotic heart disease of native coronary artery without angina pectoris
CPT/HCPCS: 71271